=== PATIENT | female | born 1960 | race African-American/Black ===

== ENCOUNTER → 2017-07-26 | Outpatient (CLI) | payer BC, OTHER ==
--- NOTE | 2017-08-02 15:50 | KCIC ---
Bilateral digital screening mammograms: Reason for examination: Routine screening. Comparison is made to previous study dated 04/09/2014. Interpretation was made with the benefit of CAD. The skin and nipples show no abnormalities. No abnormal axillary lymph nodes are seen. The breast parenchyma shows scattered fibroglandular density. (Breast density: Category B.) There continues to be some asymmetric parenchyma in the upper outer quadrant of the left breast which is unchanged. There are small circumscribed nodules bilaterally which have not changed. Some of these probably represent degenerating fibroadenoma. There are no new dominant masses, suspicious calcifications or architectural distortions. Some benign calcifications are present. Impression: No evidence of malignancy. Recommend routine screening. BI-RADS category 2: Benign "Our facility is accredited by the [employer] Mammography Program." This patient's information has been entered into a reminder system for the patient to be notified with the results of her examination and a target date for the next mammogram. Electronically signed by: Naty Vargas MD (08/02/2017 3:46 PM) [facility]
== END | disposition home or self-care (01) ==
LOC: KCIC MAMMO 11:27
PROVIDERS: ATTEND Family Medicine
DX: Z12.31 Encounter for screening mammogram for malignant neoplasm of breast (principal)
CPT/HCPCS: G0202; 77067

== ENCOUNTER → 2017-12-06 | Outpatient (CLI) | payer BC, OTHER | END | disposition home or self-care (01) | LOC: KCIC 08:24 | DX: M47.892 Other spondylosis, cervical region (principal); M48.02 Spinal stenosis, cervical region | CPT/HCPCS: 72050 ==

== ENCOUNTER → 2018-10-21 | Outpatient (CLI) | payer BC, OTHER ==
[~2018-10-21] MED LIST: AMLO5TAB10 PO; ATOR20TA58 PO; GABA-585 PO; IRBE1TAB PO; NAPR220C4 PO; OMEG1CAP6 PO; ZOLP10TA PO
--- NOTE | 2018-10-21 11:05 | RAD ---
MRI Cervical Spine Without Contrast History: Neck pain, worsening right arm radiculopathy Technique: Multiplanar, multi sequential noncontrast MR imaging was performed of the cervical spine. Comparison: None other than cervical spine radiographs 12/06/2017 Findings: There is motion degradation. Cervical vertebral body stature is maintained. There is straightening of the cervical spine. There is moderate to severe degenerative disc disease C6-7, minimally at C7-T1. AP alignment is preserved. There is no significant marrow edema. There is some linear increased T2 and STIR signal more central, slightly posterior cord at multiple levels such as C2 through C6 likely in the region of central canal of the cord although slightly more posteriorly located than typically seen. There is no expansile cord signal abnormality. There is [id number] right maxillary sinus mucosal thickening. C2-C3: Spinal canal and neural foramina are adequate. C3-C4: There is negligible disc osteophyte complex. Central canal is minimally narrowed to 9 to 10 mm. Neural foramina are adequate. C4-C5: Neural foramina and spinal canal are adequate. C5-C6: There is negligible posterior central/ left paracentral protrusion, central canal borderline about 10 mm. Neural foramina are adequate. C6-C7: There is minimal disc osteophyte complex. Central canal is borderline about 10 mm. There is uncovertebral degenerative change bilaterally. There is likely moderate narrowing of the right neural foramen, left neural foramen likely minimally narrowed. C7-T1: There is minimal disc osteophyte complex and bulge. Central canal is minimally narrowed to 9 to 10 mm. There is uncovertebral degenerative change greater on the right. There is moderate to severe narrowing of the right neural foramen, likely mild narrowing on the left. Impression: 1. There is mild spinal stenosis C3-4 and C7-T1, borderline narrowing C6-7. 2. Uncovertebral degenerative change contributes to neural foramina compromise as stated greatest on the right at C7-T1 and to a somewhat lesser degree on the right at C6-7. 3. There is moderate to severe degenerative disc disease C6-7, spondylosis at the same level. 4. There is no cord expansion. There is increased more defined increased T2 signal more centrally of the cord probably component of hydromyelia, as no provided history of myelopathy. Electronically signed by: rKis Abad MD (10/21/2018 11:00 AM) [facility]
--- NOTE | 2018-10-21 13:46 | RAD ---
Examination: Ultrasound bilateral lower extremity arterial duplex HISTORY: History of bilateral lower extremity paresthesias COMPARISON: None available Technique: Grayscale, color Doppler 2-D, spectral waveform analysis of the bilateral upper extremity arterial system was performed FINDINGS: The following are the velocities in the right upper extremity: Proximal subclavian artery 60 cm/s. Axillary artery 69 cm/s. Proximally Brachial artery 44 cm/s. Mid brachial artery 52 cm/s. Distal brachial artery 74 cm/s. Proximal radial artery 49 cm/s. Distal radial artery 38 cm/s. Proximal ulnar artery 28 cm/s and distal ulnar artery 31 cm/s. Triphasic waveforms identified throughout the right upper extremity arterial system. Following are the velocities in the left upper extremity: Left subclavian artery 52 cm/s, triphasic Axillary artery 66 cm/s, biphasic. Proximal brachial artery 64 cm/s, triphasic. Mid brachial artery 58 cm/s, triphasic. Distal brachial artery 65 cm/s, biphasic. Proximal radial artery 52 cm/s, triphasic. Distal radial artery 45 cm/s, triphasic. Proximal ulnar artery 53 cm/s, biphasic. Distal ulnar artery 43 cm/s, biphasic. IMPRESSION: No evidence of hemodynamically significant stenosis. Electronically signed by: Jorge A Hansen MD (10/21/2018 1:42 PM) [facility]
== END | disposition home or self-care (01) ==
LOC: US 07:49
PROVIDERS: ATTEND Family Medicine
DX: M50.123 Cervical disc disorder at C6-C7 level with radiculopathy (principal); M47.892 Other spondylosis, cervical region; M48.02 Spinal stenosis, cervical region; M48.03 Spinal stenosis, cervicothoracic region; M25.78 Osteophyte, vertebrae; R20.2 Paresthesia of skin
CPT/HCPCS: 72141; 93930

== ENCOUNTER → 2018-12-02 | Outpatient (CLI) | payer OTHER ==
--- NOTE | 2018-12-02 22:57 | PAIN ---
DATE OF SERVICE: 12/02/2018 INITIAL CONSULTATION FOR PAIN CLINIC: CHIEF COMPLAINT: Neck and bilateral upper extremity pain. HISTORY OF PRESENT ILLNESS: This is a 58-year-old female who presents with history of pain in the base of the neck and shoulders, lower extremities for about 3 years, worse over the past 4-5 months; however, increasing pain radiating to the base of the neck, shoulders bilaterally into the posterior shoulders, into the posterior triceps and forearm, especially slightly worse on the right than the left, manipulated essentially equal. The patient reports it is worse with activity using her arms with any repetitive motions, lifting items, typing, driving a car, reaching above her head with her hands, even putting on clothing, putting her sleeve through a shirt or jacket becomes painful with both of the upper extremities. The patient reports some jumping and twitching at night in both the upper extremities as well, some numbness and tingling in the hands where she has been dropping items with both the right and left hands over the past 4-5 months. The patient reports the pain is intermittent in intensity, but it is always present, changes during the day with activity, is tingling and numbness in the hands and arms, burning pain, cramping pain, worse at night and cold sensation in the arms as well. The patient did have an MRI scan of the cervical spine, which shows C5-C6 negligible posterior central left paracentral protrusion, C6-C7 shows disk osteophyte complex with uncovertebral degenerative changes with likely moderate narrowing at the right neural foramen and the left neural foramen likely minimally narrowed, C7-T1 shows minimal disk osteophyte complex and bulge, central canal minimally narrowed to 9-10 mm, greater degenerative change on the right, but moderate to severe narrowing of the right neural foramen and likely mild narrowing on the left. The patient rates her disability rate from 0-10, 10 being the worst, is a 2 with family home responsibilities, 1 with self-care, 6 with recreation activities and sexual behavior, 4 with social activity and 7 with occupational activities and 5-10 on life support activities, especially with sleeping. The patient has tried physical therapy in the past. Also, trigger point injections, had epidural injections in the last 2 years, which did very well by her report at an outside facility. The patient reports she is doing exercises currently does this at home, strengthening and stretching exercises neck and shoulders as well as the upper extremities daily. The patient has tried Aleve, gabapentin, Lyrica. Gabapentin does decrease the pain by moderate extent. Lyrica, she has not tried recently and is not sure how it worked. Aleve is not helping significantly, but she is taking it daily. PAST MEDICAL HISTORY: Significant for arthritis, hypertension, restless leg syndrome, depression. PREVIOUS SURGERY: Include a breast reduction. CURRENT MEDICATIONS: Include Aleve, gabapentin, Ambien and Avalide. FAMILY HISTORY: Significant for heart disease and arthritis. SOCIAL HISTORY: The patient drinks alcohol moderately, may be one glass of wine twice a week, does not smoke, does not use any illegal, illicit or recreational drugs. 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 REVIEW OF SYSTEMS: The patient's review of systems is positive for those items mentioned in history of present illness. All systems reviewed and otherwise negative. It is complete, full and well documented on the patient's chart. PHYSICAL EXAMINATION: VITAL SIGNS: Today, the patient's blood pressure is 152/100, pulse is 91, respirations 18, temperature 98.6 degrees Fahrenheit, height 5 feet, weight is 147 pounds. GENERAL: The patient is awake, alert, oriented, appropriate, very pleasant demeanor. HEENT: Head shows normocephalic, atraumatic. Extraocular movements are intact and symmetrical. Oral cavity: Mucous membranes moist and pink. Dentition is intact. NECK: Shows anterior throat supple without palpable lymphadenopathy noted. Swallow reflex symmetrical. CHEST: Shows normal on inspection. Breath sounds clear to auscultation bilaterally. HEART: Shows S1, S2 clear. No murmurs auscultated. ABDOMEN: Soft, nontender, nondistended. No palpable organomegaly is noted. No rebound or guarding demonstrated. BACK: Shows spine grossly in the midline. Normal appearing thoracic kyphosis and lumbar lordotic curvature. Lumbar paraspinous musculature shows normal on inspection and symmetrical as does thoracic paraspinous musculature and cervical paraspinous musculature. On palpation, cervical paraspinous muscle shows diffuse tenderness in the middle and lower distribution of the cervical paraspinous distribution, slightly worse on the right than the left, but present bilaterally without significant atrophy, hypertrophy, no trigger points, no radiation of pain. The patient has good rotational motion of cervical spine, both laterally greater than 45 degrees, close to 90 degrees right and left without significant increase in pain. This is true with extension which is fully performed and forward flexion fully performed as well without pain reported. EXTREMITIES: The patient's upper extremities show deep tendon reflexes at 2+ in the biceps and triceps tendons. Motor exam is approximately 4 on a scale of 5, but equal and symmetrical with fisher gill net strength right to left. Bicep and tricep flexion also 4 on a scale of 5, but equal and symmetrical, right to left as well. Peripheral pulses are 2+ radial distribution. No peripheral edema is noted bilaterally. The patient's skin is warm and dry, good turgor. No sores, rashes or bruising. Shoulder shrug is strong and intact without loss of strength on resistance as is abduction of shoulder to 90 degrees bilaterally. IMPRESSION: 1. This is a 58-year-old female with a long history approximately 3 years with increasing pain, base of the neck, bilateral upper extremities in a radicular fashion, worse over the past 4-5 months. 2. MRI scans lumbar and cervical spine as noted. 3. Hypertension. 4. Arthritis. 5. History of depression. PLAN: Options were discussed with the patient including conservative medical management, physical therapy, interventional techniques and she elected to proceed with interventional techniques as she has had good success with these in the past. We discussed a cervical epidural steroid injection using description as well as anatomical models to describe the procedure. The patient will wait for preauthorization with her insurance provider. We will have her return once this is obtained and plan on cervical epidural steroid injection at that time. LATANYA WARNER MD DR: JUAN A/fermín JOB#: [id number] / [id number] [facility] Ayesha Lao MD
== END | disposition home or self-care (01) ==
LOC: PNCL 10:10
PROVIDERS: ATTEND Anesthesiology
DX: M79.602 Pain in left arm (principal); M79.601 Pain in right arm; M54.2 Cervicalgia; I10 Essential (primary) hypertension; M19.90 Unspecified osteoarthritis, unspecified site; F32.9 Major depressive disorder, single episode, unspecified; Z82.61 Family history of arthritis
CPT/HCPCS: G0463

== ENCOUNTER → 2018-12-30 | Outpatient (CLI) | payer OTHER ==
[~2018-12-30] MED LIST changes: +IOHEXOL 180 MG/ML 10 ML VIAL. ONE; +methylPREDNISolone ACETATE 40 MG/ML VIAL. ONE; +methylPREDNISolone ACETATE 80 MG/ML VIAL. ONE
--- NOTE | 2018-12-31 00:42 | PAIN ---
DATE OF SERVICE: 12/30/2018 DIAGNOSIS: Cervical radiculopathy with cervical degenerative disk disease. HISTORY OF PRESENT ILLNESS: The patient is a 58-year-old female who returns for a followup status post initial evaluation and preauthorization for cervical epidural steroid injection, tried Medrol Dosepak on her last visit and she reports it did help by about 50%, pain in the base of the neck and shoulders, again still pain in the upper extremities, somewhat worse on the right than the left, but present bilaterally in the base of the neck and shoulders bilaterally as well. The patient reports it is tingling, aching, dull, sharp, shooting into the arms as well, again worse on the right than the left. The patient reports it is an 8 on a scale of 10 at its worst, 7 on average, 7 at its least, also has some low back pain with pain radiating into the lower extremities mostly in lateral thigh, anterior thigh and some in the posterior calf. The patient reports no new motor or sensory deficits, no new bowel or bladder incontinence. Reports the pain is 8 on a scale of 10 at its worst, 7 on average, 7 at its least and is a 7 today. Reports it awakens her from sleep about every 6 hours if she lays on her right side. The patient reports she was doing a little bit better with walking and doing work activities while taking the Medrol Dosepak, but the pain is returned now. PHYSICAL EXAMINATION: VITAL SIGNS: The patient's blood pressure is 114/82, pulse 94, respirations are 16, temperature is 98.2 degrees Fahrenheit. Height is 5 feet 1 inch, weight is 144 pounds. GENERAL: The patient is awake, alert, oriented, appropriate, very pleasant demeanor. HEENT: Shows normocephalic, atraumatic. Extraocular movements are intact and symmetrical. Oral cavity shows mucous membranes moist and pink. Dentition is intact. NECK: Shows anterior throat supple without palpable lymphadenopathy noted. Swallow reflex symmetrical. CHEST: Shows normal on inspection. Breath sounds are clear to auscultation bilaterally. HEART: Shows S1, S2 clear. No murmurs auscultated. ABDOMEN: Soft, nontender, nondistended. No palpable organomegaly is noted. No rebound or guarding demonstrated. MUSCULOSKELETAL: Back shows spine grossly in the midline, normal appearing thoracic kyphosis and lumbar lordotic curvature. Cervical lordotic curvature is maintained as well. Cervical paraspinous muscle shows symmetrical on inspection; with palpation shows some moderate tenderness diffusely bilaterally, but only diffusely. The patient has good rotational motion of the cervical spine, both laterally as well as extension and flexion without significant increasing pain. The patient's upper extremities show deep tendon reflexes 2+ biceps, triceps tendons. Motor exam is 4/5 infusion therapy nurse strength, bicep and tricep flexion, equal and symmetrical, right and left. Peripheral pulses are 2+ radial distribution. No peripheral edema is noted bilaterally. PLAN: Options were discussed with the patient. The patient's old chart was reviewed as her current medication regimen and updated. Current review of systems updated today as well. We will proceed with a cervical epidural steroid injection today with fluoroscopic guidance. Risks were again discussed including, but not limited to bleeding, infection, possibility of epidural hematoma and subsequent neurological compromise, dural puncture headache, spinal cord and/or nerve damage, side effects of steroid medication and poor results regarding pain control. The patient understands and wished to proceed. The patient will return to the clinic in approximately 2 weeks for a followup, was counseled on return appointment, activity level and side effects to be aware of. DIAGNOSIS: Cervical radiculopathy with cervical degenerative disk disease. PROCEDURE: Cervical epidural steroid injection, translaminar approach, C6-C7 level using C-arm fluoroscopic guidance under sterile prep and drape using local anesthetic. MEDICATION INJECTED: A total of 120 mg of Depo-Medrol plus 5 mL of preservative-free normal saline and 2 mL of Isovue for contrast. CONDITION AT DISCHARGE: Stable. The patient tolerated the procedure well, had no complications. LATANYA WARNER MD DR: JUAN A/fermín JOB#: [id number] / [id number]
== END | disposition home or self-care (01) ==
LOC: PNCL 09:34
PROVIDERS: ATTEND Anesthesiology
DX: M50.123 Cervical disc disorder at C6-C7 level with radiculopathy (principal); Z88.8 Allergy status to other drugs, medicaments and biological substances
CPT/HCPCS: 62321; J1030; J1040; Q9965

== ENCOUNTER 2019-03-13 09:51 | Inpatient (IN) | payer OTHER ==
[~2019-03-13] VITALS: Ht 152.4 cm; Wt 58.7 kg
[~2019-03-13 09:51] MED LIST changes: -AMLO5TAB10 PO; -ATOR20TA58 PO; -IOHEXOL 180 MG/ML 10 ML VIAL. ONE; -OMEG1CAP6 PO; -methylPREDNISolone ACETATE 40 MG/ML VIAL. ONE; -methylPREDNISolone ACETATE 80 MG/ML VIAL. ONE
--- NOTE | 2019-03-13 10:52 | PHYS DOC ---
Past Medical History Past Medical History: High Cholesterol, Hypertension Additional Past Medical Histor: Fibromyalgia, GERD Additional Information: non smoker Adult General Chief Complaint Chief Complaint: FATIGUE HPI HPI Patient is a 58 year old female that presents with fatigue that has been ongoing for months and a near syncopal episode since Wednesday. States she had an episode this morning where she became diaphoretic, and had L sided chest pressure accompanied by dizziness. Denies any pain currently. Has not tried any interventions at home. Review of Systems Review of Systems Constitutional: Denies fever or chills [] Eyes: Denies change in visual acuity, redness, or eye pain [] HENT: Denies nasal congestion or sore throat [] Respiratory: Denies cough or shortness of breath [] Cardiovascular: Reports L sided chest pressure and dizziness. GI: Denies abdominal pain, nausea, vomiting, bloody stools or diarrhea [] : Denies dysuria or hematuria [] Musculoskeletal: Denies back pain or joint pain [] Integument: Denies rash or skin lesions [] Neurologic: Denies headache, focal weakness or sensory changes [] Endocrine: Denies polyuria or polydipsia [] Complete systems were reviewed and found to be within normal limits, except as documented in this note. Current Medications Current Medications Current Medications Medications (Trade) Dose Ordered Sig/Aimee Start Time Stop Time Status Last Admin Dose Admin Aspirin (Children'S Aspirin) 324 mg 1X ONCE 03/13/19 11:00 03/13/19 11:01 DC 03/13/19 11:24 324 MG Nitroglycerin (Nitrostat) 0.4 mg 1X STAT 03/13/19 10:55 03/13/19 10:56 DC 03/13/19 11:25 0.4 MG Sodium Chloride 1,000 ml @ 1,000 mls/hr 1X ONCE 03/13/19 11:00 03/13/19 11:59 DC 03/13/19 11:25 1,000 MLS/HR Allergies Allergies Allergies Coded Allergies Type Severity Reaction Last Updated Verified PONCE Inhibitors Allergy Intermediate facial swelling 12/30/18 Yes Physical Exam Physical Exam Constitutional: Well developed, well nourished, no acute distress, non-toxic appearance. [] HENT: Normocephalic, atraumatic, bilateral external ears normal, oropharynx moist, no oral exudates, nose normal. [] Eyes: PERRLA, EOMI, conjunctiva normal, no discharge. [] Neck: Normal range of motion, no tenderness, supple, no stridor. [] Cardiovascular:Heart rate regular rhythm, no murmur [] Lungs & Thorax: Bilateral breath sounds clear to auscultation [] Abdomen: Bowel sounds normal, soft, no tenderness, no masses, no pulsatile masses. [] Skin: Warm, dry, no erythema, no rash. [] Back: No tenderness, no CVA tenderness. [] Extremities: No tenderness, no cyanosis, no clubbing, ROM intact, no edema. [] Neurologic: Alert and oriented X 3, normal motor function, normal sensory function, no focal deficits noted. [] Psychologic: Affect normal, judgement normal, mood normal. [] Current Patient Data Vital Signs Vital Signs Date Time Temp Pulse Resp B/P (MAP) Pulse Ox O2 Delivery O2 Flow Rate FiO2 03/13/19 11:25 70 134/83 03/13/19 10:40 97.7 17 99 Room Air 97.7 Lab Values Laboratory Tests Test 03/13/19 11:12 White Blood Count 6.1 x10^3/uL (4.0-11.0) Red Blood Count 4.36 x10^6/uL (3.50-5.40) Hemoglobin 14.1 g/dL (12.0-15.5) Hematocrit 41.7 % (36.0-47.0) Mean Corpuscular Volume 96 fL (79-100) Mean Corpuscular Hemoglobin 32 pg (25-35) Mean Corpuscular Hemoglobin Concent 34 g/dL (31-37) Red Cell Distribution Width 13.6 % (11.5-14.5) Platelet Count 272 x10^3/uL (140-400) Neutrophils (%) (Auto) 72 % (31-73) Lymphocytes (%) (Auto) 19 % (24-48) L Monocytes (%) (Auto) 6 % (0-9) Eosinophils (%) (Auto) 1 % (0-3) Basophils (%) (Auto) 1 % (0-3) Neutrophils # (Auto) 4.4 x10^3uL (1.8-7.7) Lymphocytes # (Auto) 1.2 x10^3/uL (1.0-4.8) Monocytes # (Auto) 0.4 x10^3/uL (0.0-1.1) Eosinophils # (Auto) 0.1 x10^3/uL (0.0-0.7) Basophils # (Auto) 0.1 x10^3/uL (0.0-0.2) Sodium Level 143 mmol/L (136-145) Potassium Level 3.7 mmol/L (3.5-5.1) Chloride Level 106 mmol/L (98-107) Carbon Dioxide Level 25 mmol/L (21-32) Anion Gap 12 (6-14) Blood Urea Nitrogen 13 mg/dL (7-20) Creatinine 1.1 mg/dL (0.6-1.0) H Estimated GFR (Cockcroft-Gault) 61.9 BUN/Creatinine Ratio 12 (6-20) Glucose Level 87 mg/dL (70-99) Calcium Level 9.7 mg/dL (8.5-10.1) Total Bilirubin 0.7 mg/dL (0.2-1.0) Aspartate Amino Transferase (AST) 19 U/L (15-37) Alanine Aminotransferase (ALT) 22 U/L (14-59) Alkaline Phosphatase 80 U/L (46-116) Troponin I Quantitative < 0.017 ng/mL (0.000-0.055) UT-Jcv-R-Type Natriuretic Peptide 16 pg/mL (0-124) Total Protein 6.9 g/dL (6.4-8.2) Albumin 4.1 g/dL (3.4-5.0) Albumin/Globulin Ratio 1.5 (1.0-1.7) Laboratory Tests 03/13/19 11:12 Laboratory Tests 03/13/19 11:12 EKG EKG EKG interpreted by Dr. Healy. No STEMI. Sinus with rate of 74.[] Radiology/Procedures Radiology/Procedures []PATIENT: RAMANDEEP TURNER MACCOUNT: [id number]#: [id number] : 1960 LOCATION: ER AGE: 58 SEX: F EXAM STATUS: REG ER ORD. PHYSICIAN: BISI KERN APRN REASON: cp,pt states feeling fatigue and left sided chest heaviness PROCEDURE: CHEST PA & LATERAL PA and lateral chest x-ray without comparison for fatigue and left-sided chest heaviness. FINDINGS: The lungs are clear. Cardiomediastinum is grossly unremarkable. No significant soft tissue or osseous abnormalities. IMPRESSION: 1. No acute cardiopulmonary abnormality. Electronically signed by: Wood Parker MD (03/13/2019 11:52 AM) [facility] Course & Med Decision Making Course & Med Decision Making Pertinent Labs and Imaging studies reviewed. (See chart for details) Story is concerning for a cardiac event. Will order labs, urine, EKG, and chest x-ray. Patient is agreeable. Labs are unremarkable and imaging is unremarkable. Patient pain did improve with nitroglycerin. Will page Dr. Lao for admission and consult Cardiology. Dr. Lao agrees to admit. Dragon Disclaimer Dragon Disclaimer This electronic medical record was generated, in whole or in part, using a voice recognition dictation system. Departure Departure Impression: Primary Impression: Chest pain Additional Impression: Near syncope Disposition: ADMITTED INPATIENT Admitting Physician: Neva Lao Condition: STABLE Referrals: Kamla LAO MD (PCP) The HEART Score for CP Pts HEART Score for Chest Pain: HEART Score for Chest Pain Response (Comments) Value History Highly Suspicious 2 ECG Normal 0 Age >45 - < 65 1 Risk Factors >3 Risk Factors or Hx CAD 2 Troponin < Normal Limit 0 Total 5 Risk Factors: Risk Factors: DM, Current or recent (<one month) smoker, HTN, HLP, family history of CAD, obesity. Risk Scores: Score 0 - 3: 2.5% MACE over next 6 weeks - Discharge Home Score 4 - 6: 20.3% MACE over next 6 weeks - Admit for Clinical Observation Score 7 - 10: 72.7% MACE over next 6 weeks - Early Invasive Strategies Problem Qualifiers Primary Impression: Chest pain Chest pain type: unspecified Qualified Codes: R07.9 - Chest pain, unspecified BISI KERN APRN Mar 13, 2019 10:52
[2019-03-13] MEDS ORDERED: NITROGLYCERIN SUBLINGUAL 0.4 MG BOTTLE OF 25. SL STA (10:55)
[2019-03-13] MEDS ORDERED: IV NORMAL SALINE 1000ML BAG 1,000 ML IV ONE (11:00)
[2019-03-13] MEDS ORDERED: ASPIRIN CHEWABLE 81 MG TABLET. PO ONE (11:00)
--- NOTE | 2019-03-13 11:14 | EKG ---
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
[2019-03-13 11:43] LABS: BASO # 0.1 x10^3/uL (0.0-0.2); BASO % 1 % (0-3); EOS # 0.1 x10^3/uL (0.0-0.7); EOS % 1 % (0-3); HEMATOCRIT 41.7 % (36.0-47.0); HEMOGLOBIN 14.1 g/dL (12.0-15.5); LYMPH # 1.2 x10^3/uL (1.0-4.8); LYMPH % 19 % (24-48); MEAN CORPUSCULAR HEMOGLOBIN 32 pg (25-35); MEAN CORPUSCULAR HGB CONC 34 g/dL (31-37); MEAN CORPUSCULAR VOLUME 96 fL (79-100); MONO # 0.4 x10^3/uL (0.0-1.1); MONO % 6 % (0-9); NEUT # 4.4 x10^3uL (1.8-7.7); NEUT % 72 % (31-73); PLATELET COUNT 272 x10^3/uL (140-400); RED BLOOD COUNT 4.36 x10^6/uL (3.50-5.40); RED CELL DISTRIBUTION WIDTH 13.6 % (11.5-14.5); WHITE BLOOD COUNT 6.1 x10^3/uL (4.0-11.0)
[2019-03-13 11:49] LABS: CALCIUM 9.7 mg/dL (8.5-10.1); CREATININE 1.1 mg/dL (0.6-1.0); GFR 61.9; POTASSIUM 3.7 mmol/L (3.5-5.1)
[2019-03-13 11:54] LABS: ALBUMIN 4.1 g/dL (3.4-5.0); ALBUMIN/GLOBULIN RATIO 1.5 (1.0-1.7); TOTAL BILIRUBIN 0.7 mg/dL (0.2-1.0); TOTAL PROTEIN 6.9 g/dL (6.4-8.2)
--- NOTE | 2019-03-13 11:55 | RAD ---
PA and lateral chest x-ray without comparison for fatigue and left-sided chest heaviness. FINDINGS: The lungs are clear. Cardiomediastinum is grossly unremarkable. No significant soft tissue or osseous abnormalities. IMPRESSION: 1. No acute cardiopulmonary abnormality. Electronically signed by: Wood Parker MD (03/13/2019 11:52 AM) [id number]
[2019-03-13] MEDS ORDERED: NITROGLYCERIN SUBLINGUAL 0.4 MG BOTTLE OF 25. SL PRN (12:45)
[2019-03-13] MEDS ORDERED: MORPHINE SULFATE 2 MG/ML VIAL. IV PRN (12:45)
[2019-03-13] MEDS ORDERED: ONDANSETRON PF 4 MG/2 ML VIAL. IV PRN (12:45)
--- NOTE | 2019-03-13 13:14 | PDOC2 ---
LEODAN DAVILA JOHANNE 03/13/19 1314: CARDIAC CONSULT DATE OF CONSULT Date of Consult DATE: 03/13/19 TIME: 13:12 REASON FOR CONSULT Reason for Consult: Chest pain REFERRING PHYSICIAN Referring Physician: Homero Sims APRN SOURCE Source: Chart review, Patient HISTORY OF PRESENT ILLNESS HISTORY OF PRESENT ILLNESS This is a 58 yo female who presented secondary to chest pain and fatigue. Reports heaviness in her lest chest/breast area. Has been intermittent for the last month. This past Wednesday, was out doing errands with her . Was in [employer] store and became dizzy and thought she might pass out. Was diaphoretic. No specific chest pain during this period. No SOA, palpitations, diaphoresis, or nasuea/vomiting. Has been more fatigued recently and had a 5-hr energy shot/drink prior to this episode, which she thinks contributed. Reports increased stress at home as she cares for her elderly mother at home and has been having to lift her a lot recently. Pain seems to be worse following lifting mother. History of HTN and HLP, but not CAD or CHF. PAST MEDICAL HISTORY Cardiovascular: HTN, Hyperlipidemia Rheumatologic: Fibromyalgia PAST SURGICAL HISTORY Past Surgical History: Other (breast reduction) FAMILY HISTORY Family History: Coronary Artery Disease (mother ) SOCIAL HISTORY Smoke: No ALCOHOL: social Drugs: None Lives: with Family CURRENT MEDICATIONS CURRENT MEDICATIONS Current Medications Medications (Trade) Dose Ordered Sig/Aimee Route PRN Reason Start Time Stop Time Status Last Admin Dose Admin Sodium Chloride 1,000 ml @ 1,000 mls/hr 1X ONCE IV 03/13/19 11:00 03/13/19 11:59 DC 03/13/19 11:25 Aspirin (Children'S Aspirin) 324 mg 1X ONCE PO 03/13/19 11:00 03/13/19 11:01 DC 03/13/19 11:24 Nitroglycerin (Nitrostat) 0.4 mg 1X STAT SL 03/13/19 10:55 03/13/19 10:56 DC 03/13/19 11:25 ALLERGIES ALLERGIES: Coded Allergies: PONCE Inhibitors (Verified Allergy, Intermediate, facial swelling, 12/30/18) ROS Review of System 14 point ROS conducted with pertinent positives noted above in HPI. PHYSICAL EXAM General: Alert, Oriented X3, Cooperative, No acute distress HEENT: Atraumatic, Mucous membr. moist/pink Lungs: Clear to auscultation, Normal air movement Heart: Regular rate, Normal S1, Normal S2, Other (2/6 systolic murmur ) Extremities: No cyanosis, No edema, Normal pulses Skin: No breakdown, No significant lesion Neuro: Normal speech, Sensation intact Psych/Mental Status: Mood NL MUSCULOSKELETAL: No deformity VITALS VITALS Vital Signs Date Time Temp Pulse Resp B/P (MAP) Pulse Ox O2 Delivery O2 Flow Rate FiO2 03/13/19 11:25 70 134/83 03/13/19 10:40 97.7 17 99 Room Air 97.7 LABS Lab: Laboratory Tests Test 03/13/19 11:12 White Blood Count 6.1 x10^3/uL (4.0-11.0) Red Blood Count 4.36 x10^6/uL (3.50-5.40) Hemoglobin 14.1 g/dL (12.0-15.5) Hematocrit 41.7 % (36.0-47.0) Mean Corpuscular Volume 96 fL (79-100) Mean Corpuscular Hemoglobin 32 pg (25-35) Mean Corpuscular Hemoglobin Concent 34 g/dL (31-37) Red Cell Distribution Width 13.6 % (11.5-14.5) Platelet Count 272 x10^3/uL (140-400) Neutrophils (%) (Auto) 72 % (31-73) Lymphocytes (%) (Auto) 19 % (24-48) Monocytes (%) (Auto) 6 % (0-9) Eosinophils (%) (Auto) 1 % (0-3) Basophils (%) (Auto) 1 % (0-3) Neutrophils # (Auto) 4.4 x10^3uL (1.8-7.7) Lymphocytes # (Auto) 1.2 x10^3/uL (1.0-4.8) Monocytes # (Auto) 0.4 x10^3/uL (0.0-1.1) Eosinophils # (Auto) 0.1 x10^3/uL (0.0-0.7) Basophils # (Auto) 0.1 x10^3/uL (0.0-0.2) Sodium Level 143 mmol/L (136-145) Potassium Level 3.7 mmol/L (3.5-5.1) Chloride Level 106 mmol/L (98-107) Carbon Dioxide Level 25 mmol/L (21-32) Anion Gap 12 (6-14) Blood Urea Nitrogen 13 mg/dL (7-20) Creatinine 1.1 mg/dL (0.6-1.0) Estimated GFR (Cockcroft-Gault) 61.9 BUN/Creatinine Ratio 12 (6-20) Glucose Level 87 mg/dL (70-99) Calcium Level 9.7 mg/dL (8.5-10.1) Total Bilirubin 0.7 mg/dL (0.2-1.0) Aspartate Amino Transf (AST/SGOT) 19 U/L (15-37) Alanine Aminotransferase (ALT/SGPT) 22 U/L (14-59) Alkaline Phosphatase 80 U/L (46-116) Troponin I Quantitative < 0.017 ng/mL (0.000-0.055) ZO-Zzy-D-Type Natriuretic Peptide 16 pg/mL (0-124) Total Protein 6.9 g/dL (6.4-8.2) Albumin 4.1 g/dL (3.4-5.0) Albumin/Globulin Ratio 1.5 (1.0-1.7) ASSESSMENT/PLAN ASSESSMENT/PLAN 1. Chest pain, atypical. Initial troponin negative 2. Hypertension 3. Hyperlipidemia 4. Fibromyalgia Recommendations ASA, statin Trend troponin Echo to assess LV systolic function Plan for outpatient ischemic evaluation unless echo significant elevated to troponin elevation noted. TYRONE SALAZAR MD 03/13/19 1733: CARDIAC CONSULT ASSESSMENT/PLAN ASSESSMENT/PLAN Pt. seen and examined. Agree with above [employer] INSURANCE SALES AGENT note. Trop, ekg and echo wnl. Outpt ischemic w/u. Thanks. Pls call with questions. LEODAN DAVILA APRN Mar 13, 2019 13:14 TYRONE SALAZAR MD Mar 13, 2019 17:33
[2019-03-13 13:18] LABS: BILIRUBIN,URINE NEGATIVE (NEG); CLARITY,URINE CLOUDY; COLOR,URINE YELLOW; NITRITE,URINE NEGATIVE (NEG); PROTEIN,URINE NEGATIVE (NEG-TRACE); UROBILINOGEN,URINE 0.2 mg/dL (0.2 mg/dL)
[2019-03-13 13:25] LABS: AMORPHOUS SEDIMENT,UR PRESENT /HPF; SQUAMOUS EPITHELIAL CELL,UR FEW /LPF
[2019-03-13 13:27] LABS: BACTERIA,URINE 0 /HPF (0-FEW); RBC,URINE OCC /HPF (0-2); WBC,URINE OCC /HPF (0-4)
[2019-03-13 13:49] LABS: CHOLESTEROL/HDL RATIO 2.9
[2019-03-13 14:00] VITALS: BP 160/102
[2019-03-13] MEDS ORDERED: OMEG1CAP6 PO (15:16)
[2019-03-13 15:19] VITALS: BP 143/103
--- NOTE | 2019-03-13 15:42 | CARD ---
MR#: [id number] Date of Study: 03/13/2019 Ordering Physician: LEODAN DAVILA, Referring Physician: Tapan MEJIA: Lois Barron RDCS APPROVED REPORT EXAM: Two-dimensional and M-mode echocardiogram with Doppler and color Doppler. Other Information Quality : Good INDICATION Chest Pain 2D DIMENSIONS RVDd2.9 (2.9-3.5cm)Left Atrium(2D)2.5 (1.6-4.0cm) IVSd0.8 (0.7-1.1cm)Aortic Root(2D)2.9 (2.0-3.7cm) LVDd4.3 (3.9-5.9cm)LVOT Diameter2.1 (1.8-2.4cm) PWd0.9 (0.7-1.1cm)LVDs3.4 (2.5-4.0cm) FS (%) 20.1 %SV34.3 ml Aortic Valve AoV Peak Samson.120.5cm/sAoV VTI20.0cm AO Peak GR.5.8mmHgLVOT Peak Samson.89.9cm/s AO Mean GR.3mmHgAVA (VMAX)2.51cm2 ARYAN (VTI)2.90cm2 Mitral Valve MV E Fmdovxdb01.6cm/sMV DECEL [id number] MV A Hkamxetv04.0cm/sE/A Ratio0.8 Tricuspid Valve TR P. Xngvugjw987ie/sRAP CBHILRED3neZq TR Peak Gr.02dqYbTWEJ44omHy Pulmonary Vein S1 Eovutfbc11.8cm/sD2 Ileplcks88.8cm/s LEFT VENTRICLE The left ventricle is normal size. There is normal left ventricular wall thickness. Left ventricle sy stolic function is normal. The Ejection Fraction is 55-60%. There is normal LV segmental wall motion. Transmitral Doppler flow pattern is Grade I-abnormal relaxation pattern. RIGHT VENTRICLE The right ventricle is normal size. The right ventricular systolic function is normal. ATRIA The left atrium size is normal. The right atrium size is normal. The interatrial septum is intact wit h no evidence for an atrial septal defect or patent foramen ovale as noted on 2-D or Doppler imaging. AORTIC VALVE The aortic valve is calcified but opens well. Doppler and Color Flow revealed no significant aortic r egurgitation. There is no significant aortic valvular stenosis. MITRAL VALVE The mitral valve is normal in structure and function. There is no evidence of mitral valve prolapse. There is no mitral valve stenosis. Doppler and Color-flow revealed trace mitral regurgitation. TRICUSPID VALVE The tricuspid valve is normal in structure and function. Doppler and Color Flow revealed trace to mil d tricuspid regurgitation. The PA pressure was estimated at 21 mmHg. There is no tricuspid valve sten osis. PULMONIC VALVE The pulmonary valve is normal in structure and function. Doppler and Color Flow revealed trace pulmon ic valvular regurgitation. There is no pulmonic valvular stenosis. GREAT VESSELS The aortic root is normal in size. The ascending aorta is normal in size. The IVC is normal in size a nd collapses >50% with inspiration. PERICARDIAL EFFUSION There is no evidence of significant pericardial effusion. Critical Notification Critical Value: No <Conclusion> The left ventricle is normal size. Left ventricle systolic function is normal. The Ejection Fraction is 55-60%. There is no significant aortic valvular stenosis. Doppler and Color Flow revealed no significant aortic regurgitation. Doppler and Color-flow revealed trace mitral regurgitation. Doppler and Color Flow revealed trace to mild tricuspid regurgitation. The PA pressure was estimated at 21 mmHg. Signed by : Steve Summers MD Electronically Approved : 03/13/2019 15:42:13
[2019-03-13] MEDS ORDERED: ZOLPIDEM 5 MG TABLET. PO PRN (15:45)
[2019-03-13] MEDS ORDERED: hydrALAZINE 20 MG/ML VIAL. IVP PRN (16:00)
[2019-03-13] MEDS: amLODIPine BESYLATE 5 MG TABLET PO SCH (16:02)
[2019-03-13 16:03] VITALS: BP 149/97
[2019-03-13 19:48] VITALS: BP 158/97
[2019-03-13 23:20] VITALS: BP 131/91
[2019-03-13] MEDS: NAPROXEN 250 MG TABLET PO SCH (23:30)
[2019-03-14 03:40] VITALS: BP 110/62
[2019-03-14 07:00] VITALS: BP 122/76
[2019-03-14] MEDS: NAPROXEN 250 MG TABLET PO SCH (07:47)
[2019-03-14 07:48] VITALS: BP 122/76
[2019-03-14] MEDS: amLODIPine BESYLATE 5 MG TABLET PO SCH (07:48)
[2019-03-14] MEDS ORDERED: ATOR20TA58 PO (08:53)
[2019-03-14] MEDS ORDERED: AMLO5TAB10 PO (08:53)
[2019-03-14] MEDS ORDERED: OMEGA-3 FATTY ACIDS/FISH OIL 1,000 MG CAPSULE. PO SCH (09:00)
[2019-03-14] MEDS ORDERED: hydroCHLOROthiazide 12.5 MG CAPSULE PO SCH (09:00)
[2019-03-14] MEDS ORDERED: GABAPENTIN 100 MG CAPSULE. PO SCH (09:00)
[2019-03-14] MEDS ORDERED: LOSARTAN POTASSIUM 50 MG TABLET. PO SCH (09:00)
--- NOTE | 2019-03-14 09:03 | PDOC ---
Provider Note Provider Note combined H&P and DC summary dictated #[id number] Kamla GOMEZ MD Mar 14, 2019 09:03
--- NOTE | 2019-03-14 09:42 | DS ---
DATE OF DISCHARGE: 03/14/2019 ADMISSION DIAGNOSIS: Chest pain with near syncopal episode. HISTORY OF PRESENT ILLNESS: This is a 58-year-old Afro French female who has had a lot of stress at home with caring for her demented mother. On Wednesday, she had a near syncopal episode and then the morning of admission, she became diaphoretic, had left-sided chest pain and pressure, accompanied by dizziness. Her convinced her to come to the Emergency Room where she was seen, evaluated and subsequently admitted with Cardiology consult. Her initial EKG and enzymes though were negative. Echocardiogram was unremarkable. Subsequent serial enzymes were negative. She received aspirin and nitro in the ER and a liter of saline. Her pain did improve with nitro, which was ultimately the decision to admit her. She had a heart score, chest pain, with a total score of 5. PAST MEDICAL HISTORY: Significant for fibromyalgia, hypertension, hyperlipidemia, GERD along with stress and some neck pain from a bulging disk. FAMILY HISTORY: Positive for dementia. SOCIAL HISTORY: She is , does not smoke or drink. ALLERGIES: PONCE INHIBITORS. HOME MEDICATIONS: Fish oil 1000 mg daily, naproxen 220 mg b.i.d., gabapentin 100 mg daily, Ambien 10 mg at bedtime. She has previously been on a statin, but stopped it. She has been on a vitamin D supplement, but is not currently taking it. REVIEW OF SYSTEMS: GENERAL: Positive for fatigue. HEENT: No change in hearing, taste or vision. NECK: Pain related to bulging disk. CARDIAC: As above. PULMONARY: No cough or shortness of breath. GASTROINTESTINAL: No nausea or vomiting. No change in bowels. GENITOURINARY: No dysuria or incontinence. MUSCULOSKELETAL: Positive for fibromyalgia, pain mainly across her upper back. SKIN: No bruising or lesions. NEUROLOGIC: No history of seizures or tremor. PSYCHIATRIC: No history of depression, but she has a lot of stressors. PHYSICAL EXAMINATION: VITAL SIGNS: Initial blood pressure 160/102, otherwise normal vitals. Her blood pressure with medication is down, this morning, to 122/76. GENERAL: She is alert and oriented, in no acute distress. HEENT: Unremarkable. She is wearing glasses. Mucous membranes are moist. Conjunctivae are clear. There is no sinus congestion or drainage. NECK: Supple, no bruit. No posterior muscular tenderness. HEART: Regular rate and rhythm without murmur, gallop or rub. LUNGS: Clear to auscultation. ABDOMEN: Soft, nondistended, nontender. NEUROLOGIC: Nonfocal. Filler Feeder is strong. Gait is normal. She is able to sit up in bed without any abdominal muscle weakness. LABORATORY DATA: Unremarkable CBC. Chemistry showed a creatinine of 1.1, but an EGFR estimated at 61.9. Triglycerides were high at 174, cholesterol high at 250, LDL high at 130 also high at 85. Vitamin D slightly low at 29.8, otherwise normal chemistries. Urinalysis was unremarkable. Cardiac enzymes were all normal. EKG was normal. Chest x-ray unremarkable. Echocardiogram was unremarkable with an EF of 55%-60%, no significant valvular disease. She did have trace to mild tricuspid regurgitation. PA pressure estimated at 21 mmHg. She was seen by Cardiology with no further recommendations. FINAL DIAGNOSES: 1. Chest pain, musculoskeletal. 2. Near syncope. 3. Hyperlipidemia. 4. Vitamin D deficiency. 5. Hypertension. PLAN: She will be discharged home on amlodipine 5 mg daily, which is new. She will resume her cholesterol pill at home and her vitamin D pill at home. Continue other home medications. She will stay off work the remainder of the week. Follow up next Wednesday in the office. W Thais GOMEZ MD DR: CARROLL/fermín JOB#: [id number] / [id number]
--- NOTE | 2019-03-14 09:50 | PDOC ---
CARDIO Progress Notes Date and Time Date of Service 03/14/19 Time of Evaluation 0915 Subjective Subjective: No Chest Pain, No shortness of breath, No Palpitations Comments: feeling better today Vitals Vitals Vital Signs Date Time Temp Pulse Resp B/P (MAP) Pulse Ox O2 Delivery O2 Flow Rate FiO2 03/14/19 08:00 Room Air 03/14/19 07:48 63 122/76 03/14/19 07:00 98.0 18 98 98.0 03/13/19 15:19 99.0 Weight Weight [ ] Input and Output Intake and Output Intake and Output 03/14/19 07:00 Intake Total 1100 ml Output Total 1025 ml Balance 75 ml Intake Oral 100 ml IV Total 1000 ml Output Urine Total 975 ml Emesis 50 ml # Voids 1 Laboratory Labs Laboratory Tests Test 03/13/19 11:12 03/13/19 13:08 03/13/19 16:20 03/13/19 22:20 White Blood Count 6.1 x10^3/uL (4.0-11.0) Red Blood Count 4.36 x10^6/uL (3.50-5.40) Hemoglobin 14.1 g/dL (12.0-15.5) Hematocrit 41.7 % (36.0-47.0) Mean Corpuscular Volume 96 fL (79-100) Mean Corpuscular Hemoglobin 32 pg (25-35) Mean Corpuscular Hemoglobin Concent 34 g/dL (31-37) Red Cell Distribution Width 13.6 % (11.5-14.5) Platelet Count 272 x10^3/uL (140-400) Neutrophils (%) (Auto) 72 % (31-73) Lymphocytes (%) (Auto) 19 % (24-48) Monocytes (%) (Auto) 6 % (0-9) Eosinophils (%) (Auto) 1 % (0-3) Basophils (%) (Auto) 1 % (0-3) Neutrophils # (Auto) 4.4 x10^3uL (1.8-7.7) Lymphocytes # (Auto) 1.2 x10^3/uL (1.0-4.8) Monocytes # (Auto) 0.4 x10^3/uL (0.0-1.1) Eosinophils # (Auto) 0.1 x10^3/uL (0.0-0.7) Basophils # (Auto) 0.1 x10^3/uL (0.0-0.2) Sodium Level 143 mmol/L (136-145) Potassium Level 3.7 mmol/L (3.5-5.1) Chloride Level 106 mmol/L (98-107) Carbon Dioxide Level 25 mmol/L (21-32) Anion Gap 12 (6-14) Blood Urea Nitrogen 13 mg/dL (7-20) Creatinine 1.1 mg/dL (0.6-1.0) Estimated GFR (Cockcroft-Gault) 61.9 BUN/Creatinine Ratio 12 (6-20) Glucose Level 87 mg/dL (70-99) Calcium Level 9.7 mg/dL (8.5-10.1) Total Bilirubin 0.7 mg/dL (0.2-1.0) Aspartate Amino Transf (AST/SGOT) 19 U/L (15-37) Alanine Aminotransferase (ALT/SGPT) 22 U/L (14-59) Alkaline Phosphatase 80 U/L (46-116) Troponin I Quantitative < 0.017 ng/mL (0.000-0.055) < 0.017 ng/mL (0.000-0.055) < 0.017 ng/mL (0.000-0.055) XY-Vvs-U-Type Natriuretic Peptide 16 pg/mL (0-124) Total Protein 6.9 g/dL (6.4-8.2) Albumin 4.1 g/dL (3.4-5.0) Albumin/Globulin Ratio 1.5 (1.0-1.7) Triglycerides Level 174 mg/dL (0-150) Cholesterol Level 250 mg/dL (0-200) LDL Cholesterol, Calculated 130 mg/dL (0-100) VLDL Cholesterol, Calculated 35 mg/dL (0-40) Non-HDL Cholesterol Calculated 165 mg/dL (0-129) HDL Cholesterol 85 mg/dL (40-60) Cholesterol/HDL Ratio 2.9 25-Hydroxy Vitamin D Total 29.8 ng/mL (30-100) Urine Collection Type Unknown Urine Color Yellow Urine Clarity Cloudy Urine pH 7.0 Urine Specific [place] 1.020 Urine Protein Negative mg/dL (NEG-TRACE) Urine Glucose (UA) Negative mg/dL (NEG) Urine Ketones (Stick) Negative mg/dL (NEG) Urine Blood Negative (NEG) Urine Nitrite Negative (NEG) Urine Bilirubin Negative (NEG) Urine Urobilinogen Dipstick 0.2 mg/dL (0.2 mg/dL) Urine Leukocyte Esterase Negative (NEG) Urine RBC Occ /HPF (0-2) Urine WBC Occ /HPF (0-4) Urine Squamous Epithelial Cells Few /LPF Urine Amorphous Sediment Present /HPF Urine Bacteria 0 /HPF (0-FEW) Test 03/14/19 00:25 Troponin I Quantitative < 0.017 ng/mL (0.000-0.055) Physical Exam Chest: Symmetric Heart: S1S2, RRR Abdomen: Soft N/T Extremities: No Edema Neurology: alert, oriented, follow commands Assessment Assessment 1. Chest pain, atypical. AMI ruled. Echo with preserved LV systolic function 2. Hypertension; controlled 3. Hyperlipidemia 4. Fibromyalgia Recommendations Continue ASA, statin, amlodipine Have arranged for outpatient stress test and follow up in clinic with Dr. Valdez February discharge from a CV standpoint LEODAN DAVILA APRN Mar 14, 2019 09:50
--- NOTE | 2019-03-14 09:55 | NUR ---
Patient discharged. home self care. Right before D/C cardiac clinic called with scheduled stress test and follow up with Dr. Valdez. This RN gave patient all needed information on what to take/not to take before stress test. Patient verbalized understanding. Patient given new prescription for amlodipine. IV discontinued. Tele removed. Belongings with patient. Patient alert and stable upon discharge. Patient accompanied by and battery charger tester to car.
== END 2019-03-14 09:20 | disposition home or self-care (01) | DRG 313 ==
LOC: ER 09:51 → 2 NORTH 12:33
PROVIDERS: ADMIT Family Medicine; ATTEND Family Medicine
DX: R07.89 Other chest pain (principal); E55.9 Vitamin D deficiency, unspecified; E78.00 Pure hypercholesterolemia, unspecified; I10 Essential (primary) hypertension; E78.5 Hyperlipidemia, unspecified; K21.9 Gastro-esophageal reflux disease without esophagitis; M79.7 Fibromyalgia; Z82.49 Family history of ischemic heart disease and other diseases of the circulatory system; Z88.8 Allergy status to other drugs, medicaments and biological substances; Z79.899 Other long term (current) drug therapy
CPT/HCPCS: 36415; 71046; 80053; 80061; 81001; 82306; 83880; 84484; 85025; 93005; 93306; 96360; J2270; J2405; J7030; 99285-25

== ENCOUNTER → 2019-06-23 | Outpatient (CLI) | payer OTHER ==
[~2019-06-23] MED LIST changes: +AMLO5TAB10 PO; +ATOR20TA58 PO; +IOHEXOL 180 MG/ML 10 ML VIAL. ONE; +OMEG1CAP6 PO; +methylPREDNISolone ACETATE 40 MG/ML VIAL. ONE; +methylPREDNISolone ACETATE 80 MG/ML VIAL. ONE
--- NOTE | 2019-06-23 23:25 | PAIN ---
DATE OF SERVICE: 06/23/2019 DIAGNOSIS: Cervical radiculopathy with cervical degenerative disk disease. HISTORY OF PRESENT ILLNESS: The patient is a 58-year-old female who returns for followup status post cervical epidural steroid injection x 1 on 12/30/2018. The patient did very well with about a 75% improvement. The patient reports now the pain is returning to base of the neck and shoulders, also with secondary complaint of pain in low back and right lower extremity in a radicular fashion. The patient reports no new motor or sensory deficits, no new bowel or bladder incontinence, but still significant pain in the neck, right upper extremity in a radicular fashion again radiating, sharp, burning, aching and painful, also low back with radiating pain in the right posterior gluteus, posterior lateral thighs, some in the left posterior lateral thigh as well, but mostly on the right side and across the low back with walking, standing, changing positions, better with sitting or lying down. The patient reports the pain generally does not awaken her from sleep in her neck or low back. Reports no new motor or sensory deficits, no new changes. Reports it is a 10 on a scale of 10 at its worst in the past week, 9 on average, 9 at its least and is a 9 today. PHYSICAL EXAMINATION: VITAL SIGNS: The patient's blood pressure 145/97, pulse 69, respirations 18, temperature 98.3 degrees Fahrenheit, height is 5 feet 1 inch, weight is 145 pounds. GENERAL: The patient is awake, alert, oriented, appropriate, very pleasant demeanor. HEENT: Shows normocephalic, atraumatic. Extraocular movements are intact and symmetrical. Oral cavity: Mucous membranes moist and pink. Dentition is intact. NECK: Shows anterior throat supple without palpable lymphadenopathy noted. Swallow reflex symmetrical. CHEST: Shows normal on inspection. Breath sounds clear to auscultation bilaterally. HEART: Shows S1, S2 clear. No murmurs auscultated. ABDOMEN: Soft, nontender, nondistended. BACK: Shows spine grossly in the midline. Cervical paraspinous muscle shows symmetrical on inspection with some moderate tenderness diffusely bilaterally, but only diffusely without radiation. The patient has good rotation motion of the cervical spine, both laterally as well as extension and flexion. Low back shows good rotation as well in the lumbar distribution. Lumbar paraspinous muscle shows symmetrical with inspection. On palpation shows some moderate tenderness diffusely in the low lumbar distribution only. Right and left are equal. The patient has good rotational motion as well in the lumbar distribution. EXTREMITIES: The patient's upper extremities show deep tendon reflexes 2+ in the biceps, triceps tendons. Motor exam is approximately 4 on a scale of 5, but equal and symmetrical with nephrology nurse strength, bicep and tricep flexion. Lower extremities show deep tendon reflexes 1+, 1+ patellar and tendo calcaneus tendons. Motor exam is strong with 5/5 dorsiflexion and extension bilaterally. Options were discussed with the patient. The patient's old chart was reviewed as her current medication regimen updated. Current review of systems updated today as well. We will proceed with a cervical epidural steroid injection today with fluoroscopic guidance. We discussed a possible lumbar epidural steroid injection on her return. She does have a clinical radiculopathy in the L4-L5 dermatomal distribution bilaterally, worse on the right than the left. Risks were discussed today including, but not limited to bleeding, infection, possibility of epidural hematoma, subsequent neurological compromise, dural puncture, headaches, spinal cord and/or nerve damage, side effects of steroid medication and poor results regarding pain control. The patient understands and wished to proceed. The patient will return to clinic in approximately 2 weeks for followup. We discussed potential lumbar epidural steroid injection for her L4-L5 right-sided lumbar radiculopathy as well if still problematic and with improvement with the cervical radicular pain at that time. DIAGNOSES: 1. Cervical radiculopathy with cervical degenerative disk disease. 2. Lumbar radiculopathy with lumbar degenerative disk disease. PROCEDURE: Cervical epidural steroid injection, translaminar approach C6-C7 level using C-arm fluoroscopic guidance under sterile prep and drape using local anesthetic. MEDICATION INJECTED: The patient received a total of 120 mg Depo-Medrol plus 5 mL of preservative-free normal saline and 2 mL of contrast. CONDITION AT DISCHARGE: Stable. The patient tolerated the procedure well, had no complications. LATANYA WARNER MD DR: JUAN A/fermín JOB#: [id number] / [id number]
== END | disposition home or self-care (01) ==
LOC: PNCL 11:10
PROVIDERS: ATTEND Anesthesiology
DX: M50.123 Cervical disc disorder at C6-C7 level with radiculopathy (principal); M51.16 Intervertebral disc disorders with radiculopathy, lumbar region; E78.00 Pure hypercholesterolemia, unspecified; I10 Essential (primary) hypertension; K21.9 Gastro-esophageal reflux disease without esophagitis; R35.8 Other polyuria; Z79.899 Other long term (current) drug therapy; Z88.8 Allergy status to other drugs, medicaments and biological substances
CPT/HCPCS: 62321; J1030; J1040; Q9965

== ENCOUNTER → 2019-09-14 | Outpatient (CLI) | payer OTHER ==
--- NOTE | 2019-09-14 23:56 | PAIN ---
DATE OF SERVICE: 09/14/2019 PROGRESS NOTE FOR PAIN CLINIC DIAGNOSES: Cervical radiculopathy with cervical degenerative disk disease. HISTORY OF PRESENT ILLNESS: The patient is a 59-year-old female, who returns for followup status post cervical epidural steroid injection x 1 on 06/23/2019. The patient did very well with about 80% improvement for 2 months with pain in the right upper extremity; now returning, shoulder, posterior forearm, biceps, anterior and posterior lateral aspect of the forearm and some tingling and numbness in the right hand in first and second fingers. The patient reports it is shooting with tingling in the hand, radiating on and off, aching and dull. Rates at a 10 on a scale of 10 at all times over the past week, average, least and worst and is a 10 on a scale of 10 today. The patient reports no new motor or sensory deficits, but with working, using a computer, it aggravates the pain, especially any weightbearing, lifting over her head with her right hand, even driving the car with her right hand. The patient reports that it awakens her from sleep occasionally, but not most nights. Feels better with lying down or relaxing. The patient reports no new changes. PHYSICAL EXAMINATION: VITAL SIGNS: The patient's blood pressure 146/62, pulse 55, respirations 18, temperature is 98.0 degrees Fahrenheit, height is 5 feet 1 inch, weight is 145 pounds. GENERAL: The patient is awake, alert, oriented, appropriate. Has very pleasant demeanor. HEENT: Shows normocephalic, atraumatic. Extraocular movements are intact and symmetrical. Oral cavity: Shows mucous membranes moist and pink. Dentition is intact. NECK: Shows anterior throat supple without palpable lymphadenopathy noted. Swallow reflex symmetrical. CHEST: Shows normal on inspection. Breath sounds are clear bilaterally. HEART: Shows S1, S2 clear. No murmurs auscultated. ABDOMEN: Soft, nontender, nondistended. No palpable organomegaly is noted. No rebound or guarding demonstrated. BACK: Shows spine grossly in the midline, normal-appearing cervical lordotic curvature and lumbar lordotic curvature. Cervical paraspinous muscle shows symmetrical on inspection. On palpation, has some moderate tenderness diffusely, but without significant radiation. The patient shows good rotational motion of the cervical spine, both laterally as well as flexion and extension without significant difficulty or pain reported. EXTREMITIES: The patient's upper extremities show deep tendon reflexes at 2+ in the patellar, 2+ in the biceps and triceps tendons. Motor exam is strong with subeditor strength rated approximately 4 on a scale 5 on the right, but 5/5 on the left. Peripheral pulses are 2+ radial distribution. No peripheral edema is noted bilaterally. Options were discussed with the patient. The patient's old chart was reviewed as her current medication regimen updated. Current review of systems updated today as well. We will proceed with a cervical epidural steroid injection, the second in a series today with fluoroscopic guidance. Risks were again discussed, including but not limited to bleeding, infection, possibility of epidural hematoma, subsequent neurological compromise, dural puncture, headaches, spinal cord and/or nerve damage, side effects of steroid medication and poor results regarding pain control. The patient understands and wished to proceed. The patient will return to the clinic in approximately 2 weeks for followup. She was counseled on return appointment, activity level, and side effects to be aware of. DIAGNOSES: Cervical radiculopathy with cervical degenerative disk disease. PROCEDURE: Cervical epidural steroid injection, translaminar approach, C6-C7 level, using C-arm fluoroscopic guidance under sterile prep and drape using local anesthetic. MEDICATION INJECTED: A total of 120 mg Depo-Medrol plus 5 mL of preservative-free normal saline and 2 mL of contrast. CONDITION AT DISCHARGE: Stable. The patient tolerated the procedure well, had no complications. LATANYA WARNER MD DR: JUAN A/fermín JOB#: [id number] / [id number]
== END ==
LOC: PNCL 14:01
PROVIDERS: ATTEND Anesthesiology
DX: M50.123 Cervical disc disorder at C6-C7 level with radiculopathy (principal)
CPT/HCPCS: 62321; J1030; J1040; Q9965

== ENCOUNTER → 2019-12-18 | Outpatient (CLI) | payer OTHER ==
[~2019-12-18] MED LIST changes: +TOLT1TAB2 PO
--- NOTE | 2019-12-18 21:57 | PAIN ---
DATE OF SERVICE: 12/18/2019 PROGRESS NOTE FOR PAIN CLINIC DIAGNOSES: Cervical radiculopathy with cervical degenerative disk disease. HISTORY OF PRESENT ILLNESS: The patient is a 59-year-old female who returns for followup status post cervical epidural steroid injections, most recently on 09/14/2019. The patient did very well with this with about 80% improvement. The pain is returning now in the neck and upper extremity, mostly on the right side, but some on the left arm as well. The patient reports it is a 9 on a scale of 10, its worst in the past week, 8 on average, 7 at its least and is a 7 today. The patient reports it is a tingling, aching and radiating, starting to cramp in her right hand as well, more in the last few weeks. The patient reports no new motor or sensory deficits, no loss of motor function, but she has some difficulty with repetitive motions with the right upper extremity, especially raising her hand over her head and lifting items with her right arm, as well as also driving a car with her right hand. The patient reports it does not awaken her from sleep generally, but can on certain nights, most nights she sleeps about 6 hours at a time without significant difficulty. PHYSICAL EXAMINATION: VITAL SIGNS: The patient's blood pressure 136/93, pulse 76, respirations 18, temperature 98.2 degrees Fahrenheit, height is 5 feet, weighs 140 pounds. GENERAL: The patient is awake, alert, oriented, appropriate, very pleasant demeanor. HEENT: Head shows normocephalic, atraumatic. Extraocular movements are intact and symmetrical. Oral cavity: Mucous membranes moist and pink. Dentition is intact. NECK: Shows anterior throat supple without palpable lymphadenopathy noted. Swallow reflex symmetrical. CHEST: Shows normal on inspection. Breath sounds are clear bilaterally. HEART: Shows S1, S2 clear. No murmurs auscultated. ABDOMEN: Soft, nontender, nondistended. No palpable organomegaly is noted. No rebound or guarding demonstrated. BACK: Shows spine grossly in the midline. Cervical paraspinous muscle shows symmetrical on inspection, with palpation there is some moderate tenderness diffusely bilaterally, and diffusely without significant radiation. The patient has good rotational motion of the cervical spine, both laterally as well as extension and flexion without significant difficulty. EXTREMITIES: Upper extremities show deep tendon reflexes at 2+ in the biceps and triceps tendons. Motor exam is approximately 4 on a scale of 5 on the right, 5/5 on the left with manager [employer] strength, bicep and tricep flexion. Peripheral pulses are 2+ radial. No peripheral edema bilaterally. Options were discussed with the patient. The patient's old chart was reviewed as her current medication regimen updated. Current review of systems updated today as well. We will proceed with a cervical epidural steroid injection, today is the third in the series of fluoroscopic guidance. Risks were again discussed including, but not limited to bleeding, infection, possibility of epidural hematoma, subsequent neurological compromise, dural puncture, headaches, spinal cord and/or nerve damage, side effects of steroid medication and poor results regarding pain control. The patient understands and wishes to proceed. The patient will return to clinic in approximately 2 weeks for followup. She was counseled on return appointment, activity level and side effects to be aware of. DIAGNOSES: Cervical radiculopathy with cervical degenerative disk disease. PROCEDURE: Cervical epidural steroid injection, translaminar approach C6-C7 level using C-arm fluoroscopic guidance under sterile prep and drape using local anesthetic. MEDICATION INJECTED: A total of 120 mg Depo-Medrol plus 5 mL of preservative-free normal saline and 2 mL of contrast. CONDITION AT DISCHARGE: Stable. The patient tolerated procedure well, had no complications. LATANYA WARNER MD DR: JUAN A/fermín JOB#: [id number] / [id number]
== END ==
LOC: PNCL 14:21
PROVIDERS: ATTEND Anesthesiology
DX: M51.16 Intervertebral disc disorders with radiculopathy, lumbar region (principal)
CPT/HCPCS: 62321; J1030; J1040; Q9965

== ENCOUNTER → 2020-08-02 | Outpatient (CLI) | payer OTHER ==
[~2020-08-02] MED LIST changes: +AMLO-186 PO; -AMLO5TAB10 PO; -IOHEXOL 180 MG/ML 10 ML VIAL. ONE; -methylPREDNISolone ACETATE 40 MG/ML VIAL. ONE; -methylPREDNISolone ACETATE 80 MG/ML VIAL. ONE
--- NOTE | 2020-08-02 15:38 | KCIC ---
CERVICAL SPINE WO CONTRAST DATE: 08/02/2020 1:15 PM INDICATION: RIGHT CERVICAL RADICULOPATHY. Right arm pain and RUE numbness and tingling, months. TECHNIQUE: Multiplanar multisequence magnetic resonance imaging of the cervical spine was performed without administration of intravenous contrast using the standard cervical spine protocol. COMPARISON: 10/21/2018. FINDINGS: Straightening of the cervical lordosis. No acute fracture. Mild multilevel degenerative disc desiccation and disc height loss. Fatty degenerative endplate changes at C6-7. Unchanged T2/STIR hyperintense signal within the dorsal central cord extending from C2-C6. No cord expansion. On the limited views of the cranial cavity and brain, the cerebellum and elsie have normal morphology and signal characteristics. No Chiari malformation. No soft tissue abnormality. Normal signal voids are present in the vertebral arteries. C2-3: Disc osteophyte complex. Uncovertebral hypertrophy. No spinal canal stenosis or neural foraminal narrowing. C3-4: Disc osteophyte complex. Uncovertebral hypertrophy. Mild facet arthropathy. Mild spinal canal stenosis. No significant neural foraminal narrowing. C4-5: Disc osteophyte complex. Uncovertebral hypertrophy. No spinal canal stenosis or neural foraminal narrowing. C5-6: Disc osteophyte complex. Uncovertebral hypertrophy. Mild spinal canal stenosis. No significant neural foraminal narrowing. C6-7: Disc osteophyte complex. Uncovertebral hypertrophy. Mild facet arthropathy. Moderate neural foraminal narrowing. Mild spinal canal stenosis. C7-T1: Disc osteophyte complex. Uncovertebral hypertrophy. Mild facet arthropathy. Severe right neural foraminal narrowing. Mild left neural foraminal narrowing. Mild spinal canal stenosis. IMPRESSION: 1. Cervical spondylosis, not significantly progressed from the prior exam and detailed level by level above. 2. Unchanged abnormal signal in the dorsal central cervical cord. Nonspecific, but can be seen with nutritional or metabolic deficiencies such as subacute combined degeneration or as sequela of prior infectious or inflammatory process. Electronically signed by: Kris Méndez MD (08/02/2020 3:35 PM) [id number]
== END ==
LOC: KCIC MRI 12:51
PROVIDERS: ATTEND Family Medicine
DX: M47.22 Other spondylosis with radiculopathy, cervical region (principal); M47.814 Spondylosis without myelopathy or radiculopathy, thoracic region; M48.03 Spinal stenosis, cervicothoracic region; M25.78 Osteophyte, vertebrae
CPT/HCPCS: 72141

== ENCOUNTER → 2020-09-30 | Outpatient (CLI) | payer OTHER ==
[~2020-09-30] MED LIST changes: +IOHEXOL 300 MG/ML 50 ML VIAL. IT ONE; +LIDOCAINE 1% Multi-Dose 20 ML VIAL. ID ONE
--- NOTE | 2020-09-30 18:01 | KCIC ---
Cervical myelogram 09/30/2020 Clinical History: Right arm pain and right arm numbness and tingling for months. Technique: After the risks and benefits of the procedure were explained to the patient, written infor med consent was obtained. The patient was placed prone on the fluoroscopy table and the lower back wa s prepped and draped in sterile fashion. 1% lidocaine was used as a local anesthetic. Under fluorosco pic guidance, the thecal sac of the lumbar cistern was punctured at the L2-L3 level using a 25-gauge Travis needle using a coaxial technique. After confirming clear CSF return, 8 cc of Isovue-300 were injected through the needle under fluoroscopic guidance. Following this the needle was removed and h emostasis achieved at the puncture site. A sterile bandage was placed in the skin puncture site. The contrast column was advanced under fluoroscopy into the cervical spine. and AP and bilateral oblique digital spot radiographs and crosstable lateral and swimmer's lateral digital radiographs of the cerv ical spine with an obtained. Following this the patient was taken to CT where CT scan if the cervical spine was performed. This will be reported separately. The patient was then observed for approximate ly 30 minutes priot to discharge home. The patient tolerated the procedure well and there were no imm ediate complications. The total fluoroscopic time for this procedure was 53 seconds. 3 digital spot r adiographs of the cervical spine were obtained. Findings:There is mild straightening of the normal cervical lordosis. Degenerative changes consisting of disc space narrowing, vertebral endplate sclerosis and mild to moderate anterior and posterior ve rtebral body osteophyte formation are seen involving the C6-7 and C7-T1 disc spaces. Mild anterior ex tradural defects are seen upon the contrast column at these levels. There is no evidence of complete block of contrast at any level involving the cervical spine. IMPRESSION: Degenerative changes are seen involving the lower cervical spine as discussed above. Electronically signed by: César Hedrick MD (09/30/2020 5:59 PM) [id number]
--- NOTE | 2020-09-30 18:22 | KCIC ---
CT cervical myelogram 09/30/2020 Clinical History: Right arm pain and numbness. Technique: This study was performed after the patient's cervical myelogram, contiguous, 0.625 mm axia l sections were obtained through the cervical spine. 2 mm sagittal, axial and coronal reconstructed i mages were obtained. One or more of the following individualized dose reduction techniques were utilized for this study: 1. Automated exposure control. 2. Adjustment of the mA and/or kV according to patient size. 3. Use of iterative reconstruction technique. Findings: Comparison is made to the patient's cervical myelogram performed earlier today. Findings: Comparison is made to the patient's MRI of the cervical spine dated 08/02/2020. Additional comparison is made to the patient's cervical myelogram performed earlier today. Sagittal and coronal reconstructed images demonstrate very mild lateral curvature of the cervical spi ne, convex to the left. There is reversal of the normal cervical lordosis. Degenerative changes consi sting of disc space narrowing, vertebral endplate sclerosis and mild to moderate anterior and posteri or vertebral body osteophyte formation are seen involving the C6-7 and C7-T1 disc spaces.. On the axial images at the C2-3 disc space there is a mild generalized disc bulge. Degenerative apple es are seen involving the uncovertebral and facet joints bilaterally. These findings do not result in significant central spinal canal or neural foraminal stenosis. At the C3-4 disc space there is a mild generalized disc bulge. Superimposed on this disc bulge is a f ocal central disc protrusion. This measures 2 mm in AP diameter. Degenerative changes are seen involv ing the uncovertebral and facet joints bilaterally. These findings do not result in significant centr al spinal canal or neural foraminal stenosis. At the C4-5 disc space there is a minimal generalized disc bulge. Degenerative changes are seen invol ving the uncovertebral and facet joints bilaterally. These findings do not result in significant cent ral spinal canal or neural foraminal stenosis. At the C5-6 disc space there is a mild generalized disc bulge. Superimposed on this disc bulge is a f ocal central disc protrusion. This measures 2.5 mm in AP diameter. Degenerative changes are seen invo lving the uncovertebral and facet joints bilaterally. These findings do not result in significant roxy tral spinal canal or neural foraminal stenosis. At the C6-7 disc space there is a mild generalized disc bulge. Degenerative changes are seen involvin g the uncovertebral and facet joints, right greater than left. These findings efface the anterior and posterior CSF resulting in mild central spinal canal stenosis without evidence of cord impingement. Mild right greater than left neural foraminal stenosis is seen. At the C7-T1 disc space there is a mild generalized disc bulge. Superimposed on this disc bulge is a right paracentral/lateral focal disc herniation. This measures 4 mm in AP diameter. It results in sev ere right lateral central spinal canal stenosis and appears to impinge upon the right C8 nerve root. Degenerative changes are seen involving the facet joints bilaterally. Mild to moderate right neural f oraminal stenosis is seen. The left neural foramen is patent. IMPRESSION: Degenerative changes are seen throughout the cervical spine. These findings result in mil d central spinal canal stenosis at C6-7 without evidence of cord impingement. Mild right greater than left neural foraminal stenosis is seen at C6-7. Mild to moderate right neural foraminal stenosis is seen at C7-T1. At the C7-T1 disc space a right paracentral/lateral focal disc herniation is seen. Thi s results in severe right lateral central spinal canal stenosis and appears to impinge upon the right C8 nerve root. Electronically signed by: César Hedrick MD (09/30/2020 6:20 PM) [id number]
== END | disposition home or self-care (01) ==
LOC: KCIC 08:45
PROVIDERS: ATTEND Neurological Surgery
DX: M48.02 Spinal stenosis, cervical region (principal); M47.22 Other spondylosis with radiculopathy, cervical region; M79.631 Pain in right forearm; I10 Essential (primary) hypertension; Z88.8 Allergy status to other drugs, medicaments and biological substances; Z79.899 Other long term (current) drug therapy
CPT/HCPCS: 62302; 72126; J3490; Q9967

== ENCOUNTER → 2020-11-01 | Outpatient (CLI) | payer OTHER ==
[~2020-11-01] MED LIST changes: +IOHEXOL 180 MG/ML 10 ML VIAL. ONE; -IOHEXOL 300 MG/ML 50 ML VIAL. IT ONE; -LIDOCAINE 1% Multi-Dose 20 ML VIAL. ID ONE; +methylPREDNISolone ACETATE 40 MG/ML VIAL. ONE; +methylPREDNISolone ACETATE 80 MG/ML VIAL. ONE
--- NOTE | 2020-11-01 10:07 | PDOC4 ---
PROCEDURE Procedure Patient was consented for cervical epidural steroid injection. Risks were d iscussed including but not limited to: Bleeding, infection, possibility of epidural hematoma and subsequent neurological compromise, dural puncture, headaches, spinal cord and/or nerve damage, side effects of steroid medication, and poor results regarding pain control. Patient understands and wished to proceed. Procedure cervical epidural steroid injection at the C6-7 level, using local anesthetic under sterile prep and drape using C-arm fluoroscopic guidance under local anesthesia medications injected ; 120 mg Depo-Medrol + 5 mL normal saline and 2 mL contrast; condition at discharge is stable patient tolerated procedure well. and had no complications LATANYA WARNER MD Nov 01, 2020 10:07
--- NOTE | 2020-11-01 10:07 | PDOC ---
Progress Note - Pain Clinic Date of Service: DOS: DATE: 11/01/20 TIME: 10:03 Diagnosis: Dx: Cervical radiculopathy with cervical degenerative disc disease History or Present Illness: HPI: 60-year-old female returns to follow-up status post cervical epidural steroid injections most recently December 18, 2019. Patient ports did very well but 80% improvement after the last injection in the right upper extremity patient reports has been very busy taking care of certain members of her family who have some other health issues and has had increased pain in the right side of the neck and shoulder right upper extremity elbow hand with numbness and tingling in the fourth and fifth fingers on the right side patient reports is aching and tingling burning becoming more constant in the right upper extremity with repetitive motion weight lifting weightbearing right driving and raising her right hand above her head. Patient rates her pain is a 10 on scale 10 is worst 9 on average 8 its least is a 9 today. Patient reports no new motor or sensory deficits or other complaints. Physical Exam: VS: Blood pressure is 118/87 pulse 88 respirations 18 temp 60 Fahrenheit weight is 133 pounds PE: PHYSICAL EXAMINATION: GENERAL: The patient is awake, alert, oriented, appropriate, very pleasant demeanor HEENT: Shows normocephalic, atraumatic. Extraocular movements are intact and symmetrical. Oral cavity: Mucous membranes moist and pink. NECK: Shows anterior throat supple without palpable lymphadenopathy noted. Swallow reflex symmetrical. CHEST: Shows normal on inspection. Breath sounds are clear bilaterally, no rales, rhonchi or wheezes auscultated. HEART: Shows S1, S2 clear. No murmurs auscultated. ABDOMEN: Soft, nontender, nondistended. No palpable organomegaly is noted. . BACK: Shows spine grossly in the midline. Normal-appearing cervical lordotic curvature. Cervical paraspinous muscles show symmetrical on inspection, on palpation shows moderate tenderness diffusely in the inferior aspect the cervical paraspinous muscular bilaterally but only diffusely and into the superior medial trapezius as well bilaterally without radiation without trigger points. Patient shows good rotation motion cervical spine both laterally as well as extension flexion without significant increase in pain. There is slightly increased thoracic kyphosis, some minor flattening of the lumbar gay dotic curvature. EXTREMITIES: Upper extremities show deep tendon reflexes 2+ in the biceps and triceps tendons. Motor exam is 4 on a scale of 5 with right spiral runner, biceps and triceps flexion and 5/5 on the left. Peripheral pulses are 2+ radial. No peripheral edema is noted bilaterally. Upper extremities are warm and dry to touch, equal in color and appearance. SKIN: Shows warm and dry, good turgor. No edema. No sores, rashes or bruising throughout. Procedure: Procedure: Options were discussed with patient. Patient chart reviews her current medication regimen updated current review of systems updated today as well. We will proceed with a cervical epidural steroid injection with fluoroscopic guidance today. Risks were discussed including but not limited to: Bleeding, infection, possibility of epidural hematoma and subsequent neurological comprom ise, dural puncture, headaches, spinal cord and/or nerve damage, side effects of steroid medication, and poor results regarding pain control. Patient understands and wished to proceed. Patient will return to the clinic in approximate 2 weeks for follow-up was counseled as to return appointment activity level and side effects to be aware of. Medication Injected: Med Injected: Procedure cervical epidural steroid injection at the C6-7 level, using local anesthetic under sterile prep and drape using C-arm fluoroscopic guidance under local anesthesia medications injected ; 120 mg Depo-Medrol + 5 mL normal saline and 2 mL contrast; condition at discharge is stable patient tolerated procedure well. and had no complications Condition at Discharge: Condition at Discharge: Condition at discharge stable, patient tolerated procedure well and had no complications. LATANYA WARNER MD Nov 01, 2020 10:07
== END | disposition home or self-care (01) ==
LOC: PNCL 09:12
PROVIDERS: ATTEND Anesthesiology
DX: M50.10 Cervical disc disorder with radiculopathy, unspecified cervical region (principal); I10 Essential (primary) hypertension; E78.00 Pure hypercholesterolemia, unspecified; K21.9 Gastro-esophageal reflux disease without esophagitis; Z79.899 Other long term (current) drug therapy; Z98.890 Other specified postprocedural states; Z88.8 Allergy status to other drugs, medicaments and biological substances; Z72.89 Other problems related to lifestyle
CPT/HCPCS: 62321; J1030; J1040; Q9965

== ENCOUNTER → 2021-01-07 | Outpatient (CLI) | payer OTHER ==
--- NOTE | 2021-01-07 10:39 | PDOC4 ---
PROCEDURE Procedure Patient was consented for lumbar epidural steroid injection. Risks were dis cussed including but not limited to: Bleeding, infection, possibility of epidural hematoma and subsequent neurological compromise, dural puncture, headaches, spinal cord and/or nerve damage, side effects of steroid medication, and poor results regarding pain control. Patient understands and wished to proceed. Procedure is lumbar epidural steroid injection under local anesthetic using sterile prep and drape at the L4-5 level using C-arm fluoroscopic guidance in both AP and lateral views medications injected is 120 mg Depo-Medrol + 10 mL preservative-free normal saline and 2 mL contrast- condition at discharge is stable patient tolerated procedure well had no complications. LATANYA WARNER MD Jan 07, 2021 10:39
--- NOTE | 2021-01-07 10:39 | PDOC ---
Progress Note - Pain Clinic Date of Service: DOS: DATE: 01/07/21 TIME: 10:36 Diagnosis: Dx: Cervical radiculopathy with cervical degenerative disc disease Lumbar radiculopathy with lumbar degenerative disc disease History or Present Illness: HPI: 60-year-old female returns to follow-up status post cervical epidural steroid injection x1 on the 2020. Patient reports doing very well with about 85% improvement her chief complaint today is low back and bilateral lower extremity pain with pain rating the bilateral hips more on the right than the left but present bilaterally in the anterior thighs medial thighs medial lower legs patient reports much worse on the right worse with walking standing changing positions better with sitting or laying down was been becoming more noticeable with her neck and shoulders doing much better pain is much more noticeable in the low back patient rates is 8 on scale 10 times over the past week worst least and average is 8 today. Patient present aching and dull can be shooting and sharp at times as well as radiating in the legs right greater than left. Patient reports no new motor or sensory deficits no bowel bladder incontinence reports generally does not awaken her from sleep at night better with sitting or laying down worse with walking and standing changing positions. Physical Exam: VS: Blood pressure is 117/88 pulse 109 respirations 18 temperature 98.9 F height is 5 foot weight is 135 pounds PE: PHYSICAL EXAMINATION: GENERAL: The patient is awake, alert, oriented, appropriate, very pleasant demeanor HEENT: Shows normocephalic, atraumatic. Extraocular movements are intact and symmetrical. Oral cavity: Mucous membranes moist and pink. Dentition is intact. NECK: Shows anterior throat supple without palpable lymphadenopathy noted. Swallow reflex symmetrical. CHEST: Shows normal on inspection. Breath sounds are clear bilaterally, no rales or rhonchi. HEART: Shows S1, S2 clear. No murmurs auscultated. ABDOMEN: Soft, nontender, nondistended. No palpable organomegaly is noted. No rebound or guarding demonstrated. BACK: Shows spine grossly in the midline. Normal-appearing cervical lordotic curvature. There is slightly increased thoracic kyphosis, some minor flattening of the lumbar lordotic curvature. Lumbar paraspinous muscles show symmetrical on inspection, on palpation shows some moderate tenderness diffusely throughout the upper, middle and lower distribution of the paraspinous muscles, but without specific trigger points, without radiation of pain. The patient has good rotational motion of the lumbar spine, both laterally as well as extension and flexion without significant difficulty. EXTREMITIES: Lower extremities show deep tendon reflexes 2+ in the patellar and tendo calcaneus tendons. Motor exam is 4 on a scale of 5 with right dorsiflexion, extension, quadriceps and hamstring flexion and 5/5 on the left. Peripheral pulses are 1+ posterior tibial. No peripheral edema is noted bilaterally. Lower extremities are warm and dry to touch, equal in color and appearance. SKIN: Shows warm and dry, good turgor. No edema. No sores, rashes or bruising throughout. Procedure: Procedure: Options were discussed with the patient. Patient chart reviews her current medication regimen updated current review of systems updated today as well. We will proceed with a lumbar epidural steroid injection stable fluoroscopic guidance. Risks were discussed including but not limited to: Bleeding, infection, possibility of epidural hematoma and subsequent neurological compromise, dural puncture, headaches, spinal cord and/or nerve damage, side effects of steroid medication, and poor results regarding pain control. Patient understands and wished to proceed. She will return to clinic in approximate 2 weeks for follow-up, was counseled as to return appointment activity level and side effects to be aware of. Medication Injected: Med Injected: Procedure is lumbar epidural steroid injection under local anesthetic using sterile prep and drape at the L4-5 level using C-arm fluoroscopic guidance in both AP and lateral views medications injected is 120 mg Depo-Medrol + 10 mL preservative-free normal saline and 2 mL contrast- condition at discharge is stable patient tolerated procedure well had no complications. Condition at Discharge: Condition at Discharge: Condition at discharge stable, patient alert procedure well and had no complications. LATANYA WARNER MD Jan 07, 2021 10:39
== END | disposition home or self-care (01) ==
LOC: PNCL 09:50
PROVIDERS: ATTEND Anesthesiology
DX: M51.16 Intervertebral disc disorders with radiculopathy, lumbar region (principal); M50.10 Cervical disc disorder with radiculopathy, unspecified cervical region; E78.00 Pure hypercholesterolemia, unspecified; I10 Essential (primary) hypertension; Z72.89 Other problems related to lifestyle; Z79.899 Other long term (current) drug therapy; Z98.890 Other specified postprocedural states; Z88.8 Allergy status to other drugs, medicaments and biological substances
CPT/HCPCS: 62323; J1030; J1040; Q9965; 77002

== ENCOUNTER → 2021-06-23 | Outpatient (CLI) | payer OTHER ==
[~2021-06-23] MED LIST changes: +DOCU-109 PO; -IOHEXOL 180 MG/ML 10 ML VIAL. ONE; +METH-562 PO; +OXYB5TAB10 PO; +TRAM50TA PO; -methylPREDNISolone ACETATE 40 MG/ML VIAL. ONE; -methylPREDNISolone ACETATE 80 MG/ML VIAL. ONE
[2021-06-23 11:00] LABS: BASO % 0 % (0-3); EOS # 0.2 x10^3/uL (0.0-0.7); EOS % 5 % (0-3); HEMATOCRIT 38.3 % (36.0-47.0); HEMOGLOBIN 13.1 g/dL (12.0-15.5); LYMPH # 1.2 x10^3/uL (1.0-4.8); LYMPH % 33 % (24-48); MEAN CORPUSCULAR HEMOGLOBIN 33 pg (25-35); MEAN CORPUSCULAR HGB CONC 34 g/dL (31-37); MEAN CORPUSCULAR VOLUME 96 fL (79-100); MONO # 0.2 x10^3/uL (0.0-1.1); MONO % 6 % (0-9); NEUT % 56 % (31-73); PLATELET COUNT 277 x10^3/uL (140-400); RED BLOOD COUNT 3.98 x10^6/uL (3.50-5.40); RED CELL DISTRIBUTION WIDTH 13.2 % (11.5-14.5); WHITE BLOOD COUNT 3.6 x10^3/uL (4.0-11.0)
[2021-06-23 11:17] LABS: ALBUMIN 3.4 g/dL (3.4-5.0); ALBUMIN/GLOBULIN RATIO 1.1 (1.0-1.7); CALCIUM 8.7 mg/dL (8.5-10.1); CREATININE 1.2 mg/dL (0.6-1.0); GFR 55.6; POTASSIUM 3.4 mmol/L (3.5-5.1); TOTAL BILIRUBIN 0.4 mg/dL (0.2-1.0); TOTAL PROTEIN 6.5 g/dL (6.4-8.2)
--- NOTE | 2021-06-23 16:36 | PREOP HP ---
DATE OF SERVICE: 06/23/2021 DATE OF ADMISSION: 06/26/2021. HISTORY OF PRESENT ILLNESS: The patient is a pleasant 60-year-old who is having difficulty with pain and pain in her right medial scapular region. She has pain that radiates into her right arm and extends from her elbow to her right hand. She says the middle, ring, and little fingers of her right hand are involved with numbness and pain, this is especially prominent at night. The problem has worsened since 12/2019. She rates her pain as 9/10 and says it is constant. Lying on her left side markedly increases her pain. Lying on the right side does help her. She is currently retired. She takes Aspercreme, Aleve and gabapentin. She has had cervical epidural steroid injections in 2018 and 2018, which she said helped her temporarily. She had an EMG nerve conduction study and was told that she has carpal tunnel syndrome. She saw an orthopedic surgeon who felt that she had an ulnar neuropathy. CURRENT MEDICATIONS: Amlodipine, omeprazole, gabapentin, oxybutynin, ropinirole, methocarbamol, Ambien, naproxen, multivitamin, vitamin D, fish oil, Aleve, black cohosh. PAST MEDICAL HISTORY: Hypertension. FAMILY HISTORY: Heart disease, hypertension, [place]. SOCIAL HISTORY: Employed, , does not smoke. Drinks alcohol 1-2 times per week. ALLERGIES: PONCE INHIBITORS. REVIEW OF SYSTEMS: A 12-point review of systems was performed and is noncontributory except that mentioned above. PHYSICAL EXAMINATION: GENERAL: Alert, pleasant, in no acute distress. HEENT: Normocephalic and atraumatic. NECK: Snml-tu-yfagixfl tenderness with palpation of the posterior cervical region. SKIN: Warm and dry. MUSCULOSKELETAL: Cervical paraspinal muscle bulk is normal. Range of motion of the cervical spine is restricted. Normal range of motion of the upper extremities bilaterally. EXTREMITIES: No clubbing, cyanosis or edema. NEUROLOGIC: Alert and oriented x3. Strength is 5/5 in the bilateral upper and lower extremities, sensory is intact to light touch in the upper and lower extremities except for decreased light touch involving the distal ulnar side of her forearm on the right side as well as the middle, ring, and little fingers of her right hand. Reflexes were present and symmetric in the upper and lower extremities bilaterally, normal gait. IMAGING DATA: I reviewed her cervical myelogram. On that study, there is significant right-sided neural foraminal narrowing present at C6-C7, especially at C7-T1. ASSESSMENT AND PLAN: I do think the problems at C6-C7 and C7-T1 on the right are responsible for her significant right arm and hand pain. My recommendation at this point is for her to undergo a posterior cervical decompressive surgery at both of these levels. I did discuss this with her in detail. She understands the surgery and the risks. She understands that it may not help her. She would strongly like to go ahead. We will make the arrangements. RICH DR: Dwayne TID: [id number]
--- NOTE | 2021-06-23 17:55 | EKG ---
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
== END ==
LOC: SURGPAT 10:25
PROVIDERS: ATTEND Neurological Surgery
DX: Z01.818 Encounter for other preprocedural examination (principal); M47.22 Other spondylosis with radiculopathy, cervical region
CPT/HCPCS: 36415; 80053; 85025; 87641; 93005

== ENCOUNTER 2021-06-26 07:21 | Observation (INO) | payer OTHER ==
[2021-06-23 11:01] VITALS: BP 121/79
[~2021-06-26] VITALS: Ht 152.4 cm; Wt 60.1 kg
[2021-06-26] VITALS (11 sets, daily range): BP systolic 125–153; BP diastolic 77–106
[~2021-06-26 07:21] MED LIST changes: +BUPIVACAINE-EPI 0.5%-1:200000 MPF 30 ML VIAL. ONE; -DOCU-109 PO; +GELATIN SPONGE SIZE 100. ONE; +IV RINGERS,LACTATED 1000ML 1,000 ML IV SCH; +KETOROLAC 60 MG/2 ML VIAL. ONE; -METH-562 PO; +PROCHLORPERAZINE 10 MG/2 ML VIAL. IVP PRN; +THROMBIN TOPICAL 20,000 UNIT SPRAY.SYRN KIT TP ONE; -TRAM50TA PO; +ceFAZolin SODIUM 1 GM in IV NORMAL SALINE 1000ML BAG 1,000 ML IRR ONE; +fentaNYL PF VIAL 100 MCG/2 ML VIAL IVP PRN
[2021-06-26] MEDS ORDERED: DEXAMETHASONE SOD PHOS 20 MG/5 ML VIAL. ONE (08:08)
[2021-06-26] MEDS ORDERED: ONDANSETRON PF 4 MG/2 ML VIAL. ONE (08:08)
[2021-06-26] MEDS ORDERED: LIDOCAINE 2% PF 5 ML VIAL. ONE (08:08)
[2021-06-26] MEDS ORDERED: PROPOFOL 50 ML IV ONE (08:08)
[2021-06-26] MEDS ORDERED: PROPOFOL 10 MG/ML (20ML) VIAL. IV ONE (08:08)
[2021-06-26] MEDS ORDERED: ROCURONIUM 50 MG/5 ML VIAL. ONE (08:09)
[2021-06-26] MEDS ORDERED: fentaNYL PF VIAL 100 MCG/2 ML VIAL ONE (08:09)
[2021-06-26] MEDS ORDERED: MIDAZOLAM HCL/PF 2 MG/2 ML VIAL. ONE (08:09)
[2021-06-26] MEDS ORDERED: SUCCINYLCHOLINE 200 MG/10 ML VIAL. ONE (08:09)
[2021-06-26] MEDS ORDERED: REMIFENTANIL 2 MG VIAL. IV ONE (08:10)
[2021-06-26] MEDS ORDERED: KETAMINE HCL IN NACL, ISO-OSM 50 MG/5 ML SYRINGE ONE (08:15)
[2021-06-26] MEDS ORDERED: PROPOFOL 100 ML IV ONE (08:26)
[2021-06-26] MEDS ORDERED: 0.9 % SODIUM CHLORIDE 10 ML DISP.SYRIN. IV PRN (10:15)
[2021-06-26] MEDS ORDERED: NALOXONE 0.4 MG/ML VIAL. IV PRN (10:15)
[2021-06-26] MEDS ORDERED: MAG HYDROX/ALUMINUM HYD/SIMETH 30 ML ORAL.SUSP PO PRN (10:15)
[2021-06-26] MEDS ORDERED: ONDANSETRON PF 4 MG/2 ML VIAL. IVP PRN (10:15)
[2021-06-26] MEDS ORDERED: diphenhydrAMINE HCL 25 MG CAPSULE PO PRN (10:15)
[2021-06-26] MEDS ORDERED: CALCIUM CARBONATE 500 MG TAB.CHEW PO PRN (10:15)
[2021-06-26] MEDS ORDERED: MAGNESIUM HYDROXIDE 2,400 MG/30 ML ORAL.SUSP. PO PRN (10:15)
[2021-06-26] MEDS ORDERED: ACETAMINOPHEN 325 MG TABLET. PO PRN (10:15)
[2021-06-26] MEDS ORDERED: ZOLPIDEM 5 MG TABLET. PO PRN (10:15)
[2021-06-26] MEDS ORDERED: GLYCOPYRROLATE 1 MG/5 ML VIAL. ONE (11:22)
[2021-06-26] MEDS ORDERED: ePHEDrine PF IN SALINE 50 MG/10 ML SYRINGE. IV ONE (11:22)
[2021-06-26] MEDS ORDERED: DESFLURANE 61 TO 120 MINUTES IH ONE (11:34)
[2021-06-26] MEDS ORDERED: DESFLURANE > 120 MINUTES IH ONE (11:34)
[2021-06-26] MEDS ORDERED: MORPHINE SULFATE 2 MG/ML INJ. ONE (12:10)
[2021-06-26] MEDS: MORPHINE SULFATE 2 MG/ML INJ. IVP PRN ×2 (12:15→12:25)
[2021-06-26] MEDS ORDERED: HYDROmorphone 2 MG/ML VIAL ONE (12:26)
[2021-06-26] MEDS: HYDROmorphone 2 MG/ML VIAL IVP PRN ×4 (12:35→13:17)
[2021-06-26] MEDS: fentaNYL PF VIAL 100 MCG/2 ML VIAL IVP PRN ×2 (16:57→23:24)
[2021-06-26] MEDS: POTASSIUM CL 20MEQ D5-0.45NACL 1,000 ML IV SCH (16:58)
[2021-06-26] MEDS: NAPROXEN 250 MG TABLET PO SCH (20:59)
[2021-06-26] MEDS: DOCUSATE SODIUM 100 MG CAPSULE. PO SCH (21:00)
[2021-06-26] MEDS ORDERED: ATORVASTATIN CALCIUM 20 MG TABLET PO SCH (21:00)
[2021-06-26] MEDS: METHOCARBAMOL 750 MG TABLET PO PRN (21:48)
[2021-06-27 03:27] VITALS: BP 115/73
[2021-06-27 07:00] VITALS: BP 146/98
[2021-06-27] MEDS: POTASSIUM CL 20MEQ D5-0.45NACL 1,000 ML IV SCH (07:20)
[2021-06-27] MEDS: METHOCARBAMOL 750 MG TABLET PO PRN (07:51)
[2021-06-27] MEDS: NAPROXEN 250 MG TABLET PO SCH (07:52)
[2021-06-27] MEDS: DOCUSATE SODIUM 100 MG CAPSULE. PO SCH (07:52)
[2021-06-27] MEDS ORDERED: traMADol 50 MG TABLET PO PRN ×2 (08:15)
[2021-06-27] MEDS ORDERED: OXYBUTYNIN CHLORIDE 5 MG TABLET PO SCH (09:00)
[2021-06-27] MEDS ORDERED: GABAPENTIN 100 MG CAPSULE. PO SCH (09:00)
[2021-06-27] MEDS ORDERED: METH-562 PO (09:43)
[2021-06-27] MEDS ORDERED: TRAM50TA PO (09:43)
[2021-06-27] MEDS ORDERED: DOCU-109 PO (09:43)
--- NOTE | 2021-06-27 09:45 | DISCH ---
DISCHARGE INSTRUCTIONS Condition on Discharge Condition on Discharge: Stable Activity After Discharge Activity Instructions for Disc: Activity as tolerated, Avoid exertion Other activity instructions: no driving for a week, soft collar for comfort Bathing Instructions: Shower-keep dressing dry, No Tub Bath until see Lifting Instructions after Dis: No heavy lifting, No pulling or pushing, Do not lift >10 pounds Driving Instructions after Dis: Do not drive today Weight Bearing Status after Di: As tolerated Diet after Discharge Diet after Discharge: Cardiac Additional Diet Restrictions: resume home diet Diet Texture: Regular Liquid Texture: Thin Liquid Wound Incision Care Wound/Incision Care: Ice to area for comfort Other wound/incision instructi: change dressing as needed, may remove dressing when dry Contacting the DRFabio after DC Call your doctor for: Concerns you may have Follow-Up Follow up with: Dr. Moss's nurse in 2 weeks [phone] Treatment/Equipment after DC Adaptive Equipment Issued: None NINO MOSS MD Jun 27, 2021 09:45
[2021-06-27 11:00] VITALS: BP 124/77
--- NOTE | 2021-06-27 11:27 | PREOP HP ---
DATE OF SERVICE: 06/26/2021 DATE OF ADMISSION: 06/26/2021. HISTORY OF PRESENT ILLNESS: The patient is a pleasant 60-year-old who is having difficulty with pain and pain in her right medial scapular region. She has pain that radiates into her right arm and extends from her elbow to her right hand. She says the middle, ring, and little fingers of her right hand are involved with numbness and pain, this is especially prominent at night. The problem has worsened since 12/2019. She rates her pain as 9/10 and says it is constant. Lying on her left side markedly increases her pain. Lying on the right side does help her. She is currently retired. She takes Aspercreme, Aleve and gabapentin. She has had cervical epidural steroid injections in 2018 and 2018, which she said helped her temporarily. She had an EMG nerve conduction study and was told that she has carpal tunnel syndrome. She saw an orthopedic surgeon who felt that she had an ulnar neuropathy. CURRENT MEDICATIONS: Amlodipine, omeprazole, gabapentin, oxybutynin, ropinirole, methocarbamol, Ambien, naproxen, multivitamin, vitamin D, fish oil, Aleve, black cohosh. PAST MEDICAL HISTORY: Hypertension. FAMILY HISTORY: Heart disease, hypertension, [place]. SOCIAL HISTORY: Employed, , does not smoke. Drinks alcohol 1-2 times per week. ALLERGIES: PONCE INHIBITORS. REVIEW OF SYSTEMS: A 12-point review of systems was performed and is noncontributory except that mentioned above. PHYSICAL EXAMINATION: GENERAL: Alert, pleasant, in no acute distress. HEENT: Normocephalic and atraumatic. NECK: Impf-ky-dqmbxksk tenderness with palpation of the posterior cervical region. SKIN: Warm and dry. MUSCULOSKELETAL: Cervical paraspinal muscle bulk is normal. Range of motion of the cervical spine is restricted. Normal range of motion of the upper extremities bilaterally. EXTREMITIES: No clubbing, cyanosis or edema. NEUROLOGIC: Alert and oriented x3. Strength is 5/5 in the bilateral upper and lower extremities, sensory is intact to light touch in the upper and lower extremities except for decreased light touch involving the distal ulnar side of her forearm on the right side as well as the middle, ring, and little fingers of her right hand. Reflexes were present and symmetric in the upper and lower extremities bilaterally, normal gait. IMAGING DATA: I reviewed her cervical myelogram. On that study, there is significant right-sided neural foraminal narrowing present at C6-C7, especially at C7-T1. ASSESSMENT AND PLAN: I do think the problems at C6-C7 and C7-T1 on the right are responsible for her significant right arm and hand pain. My recommendation at this point is for her to undergo a posterior cervical decompressive surgery at both of these levels. I did discuss this with her in detail. She understands the surgery and the risks. She understands that it may not help her. She would strongly like to go ahead. We will make the arrangements. RICH DR: Dwayne TID: [id number]
--- NOTE | 2021-06-27 11:37 | OP ---
DATE OF SURGERY: 06/26/2021 PREOPERATIVE DIAGNOSES: Disc bulging/foraminal narrowing, C6-C7, C7-T1 right, with right cervical radiculopathy. POSTOPERATIVE DIAGNOSES: Disc bulging/foraminal narrowing, C6-C7 C7-T1 right, with right cervical radiculopathy. OPERATION PERFORMED: Posterior cervical micro hemilaminotomy, medial facetotomy C6-C7, C7-T1 right, with microdiscectomy at C7-T1 right. The operation was done with EMG monitoring, SSEP monitoring, fluoroscopy and microscopic dissection. SPECIMEN: Disc and decompression. SURGEON: Munir Christopher M.D. MANUFACTURING MACHINE OPERATOR: REMEDIOS Junior assisted with the surgery. She assisted with the exposure, the microdecompression at both levels as well as the closure. OPERATIVE INDICATIONS: The patient is a very pleasant 60-year-old who developed intractable neck and right arm pain, which failed conservative measures. On imaging studies, she was found to have the above-mentioned findings and after she failed to improve with conservative treatment, I recommended posterior cervical surgery to decompress the dura and nerve roots. I spoke with her about the surgery and the risks. She understood and she wished to go ahead. DESCRIPTION OF PROCEDURE: Following general endotracheal anesthesia, the patient was positioned prone on the Jacoby table. She was placed in Amin pins. Posterior cervical region was clipped, prepped and draped in the standard fashion. FEMI hose and AV impulse boots were applied for DVT prophylaxis. The microscope was draped, fluoroscopy was draped and brought in the field. Ancef 2 grams was given less than one hour prior to initiation of the surgery. Using fluoroscopic guidance, a midline incision was made from C5 through inferior C7. I dissected down through skin and subcutaneous tissue, reflected the paraspinal muscles and placed a [place] microdisk retractor, brought in the microscope and the remainder of the surgery was done with the microscope using microscopic technique, beginning at C6-C7. I burred down a hemilaminotomy with a high speed air drill and then thinned the bone laterally along the course of the nerve. I then used micro Kerrisons 1 and 2 mm to remove bone and followed the nerve root out laterally and I assured myself that it was very well decompressed and the foramen was opened that we had passed the areas of concern of narrowing. This was accomplished, I did palpate, I did not feel disc at this level. I then went down to C7-T1 and in a similar fashion, drilled a hemilaminotomy. I did carry the farther inferiorly and visualized the dura, then followed the exiting C8 root out laterally. I trimmed the bone over the root and then used 1 and 2 mm Kerrisons to follow it out. I then used a micro blunt hook to gently palpate beneath the root and I did elevate the root. There was disc bulging and I did use a micropituitary to remove disc material. I entered into the disc space, removed some disc and fully decompressed the entire region. I explored carefully. I felt the root was very free. I irrigated with antibiotic solution. I did lay Gelfoam over the hemilaminotomy sites. I removed the retractor, obtained hemostasis in the muscle and I closed the wound in layers with absorbable suture after irrigation. The skin was closed with skin avelina. I felt the surgery went very well and the patient was taken to recovery room with normal strength in her right upper extremity. I was quite pleased with the surgery. LYNETTE DR: Markell TID: [id number] REILLY
--- NOTE | 2021-06-27 12:30 | NUR ---
Patient left with her around 1230. Dressing to posterior neck changed prior to discharge with extra dressings given to the patient. Incision was CDI with avelina intact. IV discontinued without complications. Scripts sent to her pharmacy per Dr Christopher. Soft collar placed for comfort. Patient left with all her belongings. No concerns noted at discharge.
== END 2021-06-27 12:43 | disposition home or self-care (01) ==
LOC: SURG 07:21 → 4 NORTH 10:01
PROVIDERS: ADMIT Neurological Surgery; ATTEND Neurological Surgery
DX: M54.12 Radiculopathy, cervical region (principal); M51.26 Other intervertebral disc displacement, lumbar region; I10 Essential (primary) hypertension; Z79.01 Long term (current) use of anticoagulants
CPT/HCPCS: 63020; 63035; 76000; 88304; 96374; 96375; 96376; 97116; 97162; 97530; A4364; A4556; A4930; G0378; G0379; J0330; J0690; J1100; J1170; J1885; J2250; J2270; J2405; J2704; J3010; J3480; J3490; J7030; A4222; A4657

== ENCOUNTER → 2022-01-12 | Day surgery (SDC) | payer OTHER ==
[~2022-01-12] VITALS: Ht 152.4 cm; Wt 60.0 kg
[~2022-01-12] MED LIST changes: -BUPIVACAINE-EPI 0.5%-1:200000 MPF 30 ML VIAL. ONE; +DOCU-109 PO; -GELATIN SPONGE SIZE 100. ONE; -KETOROLAC 60 MG/2 ML VIAL. ONE; +LIDOCAINE 2% PF 5 ML VIAL. ONE; +METH-562 PO; +OMEP20CA16 PO; +PROPOFOL 10 MG/ML (20ML) VIAL. IV ONE; -THROMBIN TOPICAL 20,000 UNIT SPRAY.SYRN KIT TP ONE; +TRAM50TA PO; -ceFAZolin SODIUM 1 GM in IV NORMAL SALINE 1000ML BAG 1,000 ML IRR ONE; +ePHEDrine PF IN SALINE 50 MG/10 ML SYRINGE. IV ONE
--- NOTE | 2022-01-12 13:34 | PDOC4 ---
PROCEDURE Procedure EGD/biopsies, colonoscopy Indication: Dyspepsia/screening Meds: per anesthesia Findings: E--Healed, erosive at baseline, esophagitis at 38cm. G--patchy antral erythema, biopsies antrum and fundus. D--Normal to second portion. VAL---normal --'Scope advanced to cecum. Prep adequate. Mucosa normal. Multiple diverticula throughout. No polyps, masses, etc. Internal hemorrhoids on retroflex. Shaunna. well. IMP: GERD Antral erythema, biopsies pending. Diverticulosis Internal hemorrhoids. REC: Continue meds, diet as before. Await biopsies. F/u with me in 2 weeks. Repeat colonoscopy in 10 years. BISI COLLADO MD Jan 12, 2022 13:34
[2022-01-12 13:49] VITALS: BP 123/85
--- NOTE | 2022-01-14 18:31 | PATHOLOGY ---
[facility] Accession Number: [id number] . 01 Material submitted: . PART A: stomach - ANTRUM BIOPSY PART B: stomach - FUNDUS BIOPSY . 01 Clinical history: . DYSPEPSIA/SCREEN EGD COLONOSCOPY . 02 Diagnosis: A. Gastric biopsies, antrum: - Chronic gastritis, mild. . B. Gastric biopsy, gastric fundus: - Superficial congestion and slight chronic inflammation. . (JPM:mm; 01/14/2022) [facility] 01/14/2022 1118 Local . 02 Comment: Sections of the gastric antral biopsy show congestion and mild chronic inflammation with scattered admixed eosinophils. A properly-controlled immunoperoxidase stain for Helicobacter is negative for Helicobacter organisms. . Sections of the gastric fundus biopsy show superficial congestion and slight chronic inflammation. A properly-controlled immunoperoxidase stain for Helicobacter is negative for Helicobacter organisms. . Special stains performed: Immunoperoxidase stains for Helicobacter on A1 and B1 . (JPM:mml; 01/14/2022) . 02 Electronically signed: . Niels Whipple MD, Pathologist NPI- [id number] . 01 Gross description: . A. The specimen is received in formalin, labeled "Andres, Ginny, antrum bx" and consists of a dumont irregular tissue measuring 0.8 x 0.2 x 0.2 cm which is submitted in toto in A1. . B. The specimen is received in formalin, labeled "Andres, Ginny, fundus BX" and consists of 2 dumont irregular tissues aggregating 0.5 x 0.4 x 0.2 cm which are submitted in toto in B1. (BISHOP PAIUTE; 01/13/2022) DKA/DKA 01/13/2022 1741 Local . 02 Pathologist provided ICD-10: K29.50, K29.50 . 02 CPT . 580775, 295327, [id number] Specimen Comment: A courtesy copy of this report has been sent to [phone], [phone] Specimen Comment: [id number] Specimen Comment: Report sent to / DR GOMEZ Performed at: 01 [facility] [address] [place] [address] [address], [place] [id number] MD Mendez Minor MD Phone: [phone] Performed at: 02 [facility] [address] [place], [place] [id number] MD Niels Whipple MD Phone: [phone]
== END | disposition home or self-care (01) ==
LOC: ENDOS 12:10
PROVIDERS: ATTEND Internal Medicine Gastroenterology
DX: Z12.11 Encounter for screening for malignant neoplasm of colon (principal); R10.13 Epigastric pain; K21.00 Gastro-esophageal reflux disease with esophagitis, without bleeding; K29.50 Unspecified chronic gastritis without bleeding; K57.30 Diverticulosis of large intestine without perforation or abscess without bleeding; K64.0 First degree hemorrhoids; K63.89 Other specified diseases of intestine; K31.89 Other diseases of stomach and duodenum; I10 Essential (primary) hypertension; E78.00 Pure hypercholesterolemia, unspecified; M19.90 Unspecified osteoarthritis, unspecified site; F41.9 Anxiety disorder, unspecified; Z79.899 Other long term (current) drug therapy; Z98.890 Other specified postprocedural states; Z72.89 Other problems related to lifestyle; Z88.8 Allergy status to other drugs, medicaments and biological substances
CPT/HCPCS: 43239; 45378; J2704; 88305; 88342